=== PATIENT | male | born 1950 | race Hispanic/Latino ===

== ENCOUNTER 2017-07-02 13:03 | Inpatient (IN) | payer MEDICARE ==
[~2017-07-02] VITALS: Ht 167.6 cm; Wt 99.8 kg
[~2017-07-02 13:03] MED LIST: ASPI-555 PO; CETI-101 PO; DEXL60CA3 PO; DUTA.5 PO; FLUT15.88 NS; GARL1CAP7 PO; LINA145C PO; LOSA25TA21 PO; METOPROLOL; PHENAZOPYRID PO; ROSU20TA PO; SIMV20TA6 PO; SUCR1TAB2 PO
[2017-07-02] MEDS ORDERED: SODIUM CHLORIDE 0.9% 1000ML 1,000 ML IV ONE (13:08)
[2017-07-02] MEDS ORDERED: ADENOSINE 3 MG/ML 2ML VIAL IV ONE (13:08)
[2017-07-02 13:22] LABS: BASOPHILS % (AUTO) 0.3 % (0.0-5.0); EOSINOPHILS % (AUTO) 0.2 % (0.0-8.0); HEMATOCRIT 48.8 % (42-54); LYMPHOCYTES % (AUTO) 17.7 % (21.0-51.0); MEAN CORPUSCULAR HEMOGLOBIN 31.6 pg (27.0-33.0); MEAN CORPUSCULAR HGB CONC 34.3 g/dL (32.0-36.0); MEAN CORPUSCULAR VOLUME 92.1 fL (79-99); NEUTROPHILS % (AUTO) 79.8 % (40.0-77.0); PLATELET COUNT (AUTO) 219 K/uL (130-400); RED CELL DISTRIBUTION WIDTH 13.7 % (11.0-15.5); WHITE BLOOD COUNT (AUTO) 8.2 K/uL (4.8-10.8)
[2017-07-02 13:31] LABS: CREATININE 1.3 mg/dL (0.5-1.5)
[2017-07-02 13:36] LABS: ALBUMIN 4.5 g/dL (3.5-5.0); BILIRUBIN,TOTAL 0.7 mg/dL (0.2-1.0); TOTAL PROTEIN, SERUM 8.3 g/dL (6.0-8.3)
[2017-07-02] MEDS ORDERED: NITROGLYCERIN 0.4 MG SL TAB SL ONE (13:37)
[2017-07-02 14:20] LABS: CREATINE KINASE, TOTAL 154 U/L (21-232); MYOGLOBIN 89 ng/mL (10-92); THYROID STIMULATING HORMONE 3.05 uIU/mL (0.36-3.74); TROPONIN I < 0.04 ng/mL (0.00-0.06)
[2017-07-02 14:34] LABS: T4 (THYROXINE) 7.1 mcg/dL (4.7-13.3)
[2017-07-02] MEDS ORDERED: ASPIRIN 325 MG TABLET ONE (14:40)
[2017-07-02] MEDS ORDERED: NITROGLYCERIN 1GM/1 INCH PACKET TD ONE (14:40)
[2017-07-02] MEDS ORDERED: GUAIFENESIN-DM 200/20 MG 10 ML PO PRN (15:00)
[2017-07-02] MEDS ORDERED: LACTULOSE 20 GM/30 ML UDCUP PO PRN (15:00)
[2017-07-02] MEDS ORDERED: MAG HYDROX/AL HYDROX/SIMETH ES 30 ML SUSP UDCUP PO PRN (15:00)
[2017-07-02] MEDS ORDERED: ONDANSETRON HCL 4 MG/2 ML VIAL IV PRN (15:00)
[2017-07-02] MEDS: INSULIN HUMULIN R 100 UNIT/ML 3ML SQ SCH ×2 (16:30→20:47)
[2017-07-02] MEDS ORDERED: ACETAMINOPHEN 325 MG TAB ONE (17:01)
[2017-07-02 17:29] LABS: HEMOGLOBIN A1C 5.7 % (4.0-6.0)
[2017-07-02 18:20] VITALS: BP 150/85
[2017-07-02] MEDS ORDERED: DUTA.5 PO (18:50)
[2017-07-02] MEDS ORDERED: OMEP20CA10 PO (18:50)
[2017-07-02 19:40] VITALS: BP 131/77
[2017-07-02] MEDS: FAMOTIDINE/PF 20 MG/2 ML VIAL IV SCH (20:46)
[2017-07-02] MEDS: METOPROLOL TARTRATE 25 MG TAB PO SCH (20:46)
[2017-07-02 21:23] LABS: TROPONIN I 3.07 ng/mL (0.00-0.06)
[2017-07-02] MEDS ORDERED: ENOXAPARIN SODIUM 100 MG/1 ML SQ SCH ×2 (22:00→23:15)
[2017-07-02] MEDS: ACETAMINOPHEN 325 MG TAB PO PRN (22:13)
[2017-07-02 23:36] VITALS: BP 98/57
[2017-07-03] VITALS (22 sets, daily range): BP systolic 90–148; BP diastolic 49–81
[2017-07-03 06:10] LABS: CREATINE KINASE MB 35.7 ng/mL (0.5-3.6)
[2017-07-03 06:12] LABS: TROPONIN I 2.97 ng/mL (0.00-0.06)
[2017-07-03] MEDS: INSULIN HUMULIN R 100 UNIT/ML 3ML SQ SCH ×4 (06:26→21:00)
[2017-07-03] MEDS: METOPROLOL TARTRATE 25 MG TAB PO SCH ×2 (08:04→20:38)
[2017-07-03] MEDS: ASPIRIN 325 MG TABLET PO SCH (08:04)
[2017-07-03] MEDS: FAMOTIDINE/PF 20 MG/2 ML VIAL IV SCH ×2 (08:04→20:37)
[2017-07-03] MEDS ORDERED: ENOXAPARIN SODIUM 40 MG/0.4 ML SYRINGE SQ SCH (09:00)
[2017-07-03] MEDS ORDERED: SUCRALFATE 1 GM TABLET PO SCH (10:15)
[2017-07-03] MEDS ORDERED: FLUTICASONE PROPIONATE 50 MCG NS SCH (10:15)
[2017-07-03] MEDS: ACETAMINOPHEN 325 MG TAB PO PRN ×3 (14:35→23:20)
[2017-07-03] MEDS ORDERED: NITROGLYCERIN 0.4 MG SL TAB SL ONE (14:37)
[2017-07-03] MEDS ORDERED: NITROGLYCERIN 0.4 MG SL TAB SL PRN (14:45)
[2017-07-03] MEDS ORDERED: METOPROLOL TARTRATE 1 MG/ML 5ML VIAL IV SCH (15:00)
[2017-07-03] MEDS ORDERED: METOPROLOL TARTRATE 1 MG/ML 5ML VIAL IV ONE (15:01)
[2017-07-03] MEDS ORDERED: NITROGLYCERIN 50 MG/D5% WATER 250 BOT IV PRN (15:15)
[2017-07-03] MEDS ORDERED: NITROGLYCERIN 50 MG/D5% WATER 1 BOT ONE (15:21)
[2017-07-03 15:40] LABS: CREATINE KINASE MB 21.8 ng/mL (0.5-3.6)
[2017-07-03 15:47] LABS: TROPONIN I 2.54 ng/mL (0.00-0.06)
[2017-07-03] MEDS: CLOPIDOGREL BISULFATE 75 MG TAB PO SCH (16:15)
[2017-07-03] MEDS: ATORVASTATIN CALCIUM 10 MG TABLET PO SCH (20:38)
[2017-07-03] MEDS: CETIRIZINE HCL 5 MG TABLET PO SCH (20:38)
[2017-07-04] VITALS (9 sets, daily range): BP systolic 82–136; BP diastolic 37–78
[2017-07-04 03:54] LABS: HEMATOCRIT 39.3 % (42-54); MEAN CORPUSCULAR HEMOGLOBIN 31.6 pg (27.0-33.0); MEAN CORPUSCULAR HGB CONC 34.3 g/dL (32.0-36.0); MEAN CORPUSCULAR VOLUME 92.3 fL (79-99); PLATELET COUNT (AUTO) 187 K/uL (130-400); RED BLOOD CELL COUNT(AUTO) 4.25 MIL/uL (4.50-6.20); RED CELL DISTRIBUTION WIDTH 13.6 % (11.0-15.5); WHITE BLOOD COUNT (AUTO) 6.8 K/uL (4.8-10.8)
[2017-07-04 04:20] LABS: CREATINE KINASE MB 7.8 ng/mL (0.5-3.6); CREATININE 1.2 mg/dL (0.5-1.5); POTASSIUM 3.8 mmol/L (3.5-5.1)
[2017-07-04 04:23] LABS: TROPONIN I 1.85 ng/mL (0.00-0.06)
[2017-07-04] MEDS: INSULIN HUMULIN R 100 UNIT/ML 3ML SQ SCH (06:29)
[2017-07-04] MEDS: ACETAMINOPHEN 325 MG TAB PO PRN ×2 (06:42→20:17)
[2017-07-04] MEDS: CLOPIDOGREL BISULFATE 75 MG TAB PO SCH (08:17)
[2017-07-04] MEDS: LOSARTAN 50 MG TABLET PO SCH (08:17)
[2017-07-04] MEDS: METOPROLOL TARTRATE 25 MG TAB PO SCH ×2 (08:17→21:37)
[2017-07-04] MEDS: ENOXAPARIN SODIUM 100 MG/1 ML SQ SCH (08:17)
[2017-07-04] MEDS: ASPIRIN 325 MG TABLET PO SCH (08:17)
[2017-07-04] MEDS: FAMOTIDINE/PF 20 MG/2 ML VIAL IV SCH ×2 (08:35→21:39)
[2017-07-04] MEDS: LINZESS 145 MCG PO SCH (09:00)
[2017-07-04] MEDS: **HM** DEXILANT 60MG PO SCH (09:14)
[2017-07-04] MEDS: ISOSORBIDE MONONITRATE 20 MG TABLET PO SCH ×2 (13:19→21:38)
[2017-07-04] MEDS: ATORVASTATIN CALCIUM 10 MG TABLET PO SCH (21:37)
[2017-07-04] MEDS: CETIRIZINE HCL 5 MG TABLET PO SCH (21:37)
[2017-07-05] VITALS (7 sets, daily range): BP systolic 104–161; BP diastolic 59–81
[2017-07-05 04:58] LABS: CREATININE 1.2 mg/dL (0.5-1.5); POTASSIUM 3.7 mmol/L (3.5-5.1)
[2017-07-05 10:11] LABS: INR 0.99 (0.85-1.15); PROTHROMBIN TIME 10.4 SEC (9.6-11.6)
[2017-07-05] MEDS ORDERED: REGADENOSON 0.4 MG/5 ML PF SYG IVP SCH (14:30)
[2017-07-05] MEDS: ISOSORBIDE MONONITRATE 20 MG TABLET PO SCH ×2 (16:52→21:20)
[2017-07-05] MEDS: ASPIRIN 325 MG TABLET PO SCH (16:53)
[2017-07-05] MEDS: CLOPIDOGREL BISULFATE 75 MG TAB PO SCH (16:53)
[2017-07-05] MEDS: LOSARTAN 50 MG TABLET PO SCH (16:53)
[2017-07-05] MEDS: METOPROLOL TARTRATE 25 MG TAB PO SCH ×2 (16:53→21:19)
[2017-07-05] MEDS: AVODART 0.5 MG PO SCH (16:54)
[2017-07-05] MEDS: LINZESS 145 MCG PO SCH (16:54)
[2017-07-05] MEDS: **HM** DEXILANT 60MG PO SCH (16:54)
[2017-07-05] MEDS: ENOXAPARIN SODIUM 100 MG/1 ML SQ SCH (16:55)
[2017-07-05] MEDS: FAMOTIDINE/PF 20 MG/2 ML VIAL IV SCH ×2 (16:55→21:20)
[2017-07-05] MEDS: ACETAMINOPHEN 325 MG TAB PO PRN (18:56)
[2017-07-05] MEDS: ATORVASTATIN CALCIUM 10 MG TABLET PO SCH (21:19)
[2017-07-05] MEDS: CETIRIZINE HCL 5 MG TABLET PO SCH (21:20)
[2017-07-05] MEDS ORDERED: SODIUM CHLORIDE 0.9% 500ML 500 ML IV SCH (22:14)
[2017-07-06] VITALS (14 sets, daily range): BP systolic 88–149; BP diastolic 53–90
[2017-07-06] MEDS: ACETAMINOPHEN 325 MG TAB PO PRN (00:38)
[2017-07-06 04:06] LABS: HEMATOCRIT 41.8 % (42-54); MEAN CORPUSCULAR HEMOGLOBIN 31.7 pg (27.0-33.0); MEAN CORPUSCULAR HGB CONC 34.5 g/dL (32.0-36.0); PLATELET COUNT (AUTO) 200 K/uL (130-400); RED BLOOD CELL COUNT(AUTO) 4.54 MIL/uL (4.50-6.20); RED CELL DISTRIBUTION WIDTH 13.4 % (11.0-15.5); WHITE BLOOD COUNT (AUTO) 5.7 K/uL (4.8-10.8)
[2017-07-06 04:16] LABS: CREATININE 1.2 mg/dL (0.5-1.5)
[2017-07-06] MEDS: METOPROLOL TARTRATE 25 MG TAB PO SCH ×2 (07:44→21:09)
[2017-07-06] MEDS: LOSARTAN 50 MG TABLET PO SCH (07:44)
[2017-07-06] MEDS: ISOSORBIDE MONONITRATE 20 MG TABLET PO SCH ×2 (07:45→21:09)
[2017-07-06] MEDS: ASPIRIN 325 MG TABLET PO SCH (07:45)
[2017-07-06] MEDS: FAMOTIDINE/PF 20 MG/2 ML VIAL IV SCH ×2 (07:45→21:09)
[2017-07-06] MEDS: **HM** DEXILANT 60MG PO SCH (07:54)
[2017-07-06] MEDS: LINZESS 145 MCG PO SCH (07:54)
[2017-07-06] MEDS ORDERED: NITROGLYCERIN 5 MG/ML 10 ML VIAL IV ONE (12:11)
[2017-07-06] MEDS ORDERED: LIDOCAINE HCL 2% 20ML ONE (12:11)
[2017-07-06] MEDS ORDERED: HEPARIN SODIUM 1000UNIT/ML 10ML VIAL ONE (12:11)
[2017-07-06] MEDS ORDERED: BIVALIRUDIN 250 MG/VIAL IV ONE (12:11)
[2017-07-06] MEDS ORDERED: ISOVUE-370 50ML VIAL IV ONE (12:11)
[2017-07-06] MEDS ORDERED: IOPAMIDOL-370 100 ML VIAL IV ONE (12:11)
[2017-07-06] MEDS ORDERED: MIDAZOLAM HCL 1 MG/ML 2ML VIAL ONE (12:55)
[2017-07-06] MEDS ORDERED: FENTANYL CITRATE PF 50 MCG/1 ML 2ML VIAL ONE (12:55)
[2017-07-06] MEDS ORDERED: SODIUM CHLORIDE 0.9% 1000ML 1,000 ML IV SCH (13:46)
[2017-07-06] MEDS: ACETAMINOPHEN-CODEINE 300/30MG TAB PO PRN ×2 (17:06→21:11)
[2017-07-06] MEDS: CLOPIDOGREL BISULFATE 75 MG TAB PO SCH (17:07)
[2017-07-06] MEDS: CETIRIZINE HCL 5 MG TABLET PO SCH (21:09)
[2017-07-06] MEDS: ATORVASTATIN CALCIUM 10 MG TABLET PO SCH (21:09)
[2017-07-07 03:38] VITALS: BP 113/57
[2017-07-07 05:00] LABS: HEMATOCRIT 40.6 % (42-54); MEAN CORPUSCULAR HEMOGLOBIN 31.8 pg (27.0-33.0); MEAN CORPUSCULAR HGB CONC 34.5 g/dL (32.0-36.0); MEAN CORPUSCULAR VOLUME 92.3 fL (79-99); NUCLEATED RED BLOOD CELLS 0.1 % (0.0-0.19); PLATELET COUNT (AUTO) 198 K/uL (130-400); RED CELL DISTRIBUTION WIDTH 13.5 % (11.0-15.5); WHITE BLOOD COUNT (AUTO) 4.8 K/uL (4.8-10.8)
[2017-07-07 05:36] LABS: CREATININE 1.1 mg/dL (0.5-1.5); POTASSIUM 3.6 mmol/L (3.5-5.1)
[2017-07-07] MEDS: ACETAMINOPHEN 325 MG TAB PO PRN (06:34)
[2017-07-07 07:28] VITALS: BP 120/75
[2017-07-07] MEDS: AVODART 0.5 MG PO SCH (09:00)
[2017-07-07] MEDS: LINZESS 145 MCG PO SCH (09:00)
[2017-07-07] MEDS: **HM** DEXILANT 60MG PO SCH (09:00)
[2017-07-07] MEDS: ASPIRIN 325 MG TABLET PO SCH (09:53)
[2017-07-07] MEDS: FAMOTIDINE/PF 20 MG/2 ML VIAL IV SCH (09:53)
[2017-07-07] MEDS: CLOPIDOGREL BISULFATE 75 MG TAB PO SCH (09:54)
[2017-07-07] MEDS: LOSARTAN 50 MG TABLET PO SCH (09:54)
[2017-07-07] MEDS: METOPROLOL TARTRATE 25 MG TAB PO SCH (09:54)
[2017-07-07] MEDS: ISOSORBIDE MONONITRATE 20 MG TABLET PO SCH (09:55)
[2017-07-07 11:29] VITALS: BP 121/69
== END 2017-07-07 16:45 | disposition home or self-care (01) | DRG 281 ==
LOC: EDH 13:03 → OBSVTOIN 14:54 → EDHIP 14:54 → 2DH 17:53 → 2CH 07-03 15:27 → 2DH 07-04 13:33
PROVIDERS: ADMIT Family Medicine; ATTEND Family Medicine
PROC: 4A023N7 Measurement of Cardiac Sampling and Pressure, Left Heart, Percutaneous Approach (ICD-10-PCS; principal; 2017-07-06)
PROC: B2131ZZ Fluoroscopy of Multiple Coronary Artery Bypass Grafts using Low Osmolar Contrast (ICD-10-PCS; 2017-07-06)
PROC: B2111ZZ Fluoroscopy of Multiple Coronary Arteries using Low Osmolar Contrast (ICD-10-PCS; 2017-07-06)
PROC: B2151ZZ Fluoroscopy of Left Heart using Low Osmolar Contrast (ICD-10-PCS; 2017-07-06)
PROC: B2181ZZ Fluoroscopy of Left Internal Mammary Bypass Graft using Low Osmolar Contrast (ICD-10-PCS; 2017-07-06)
PROC: B3101ZZ Fluoroscopy of Thoracic Aorta using Low Osmolar Contrast (ICD-10-PCS; 2017-07-06)
DX: I21.4 Non-ST elevation (NSTEMI) myocardial infarction (principal); I47.1 Supraventricular tachycardia; I50.22 Chronic systolic (congestive) heart failure; I11.0 Hypertensive heart disease with heart failure; Z95.1 Presence of aortocoronary bypass graft; I25.110 Atherosclerotic heart disease of native coronary artery with unstable angina pectoris; E78.5 Hyperlipidemia, unspecified; Z88.0 Allergy status to penicillin; Z82.49 Family history of ischemic heart disease and other diseases of the circulatory system; Z79.82 Long term (current) use of aspirin; Z87.891 Personal history of nicotine dependence; Z28.21 Immunization not carried out because of patient refusal
CPT/HCPCS: 36415; 71045; 78452; 80048; 80053; 80061; 82550; 82553; 82948; 83036; 83874; 83880; 84436; 84443; 84484; 85025; 85027; 85610; 93005; 93017; 93306; 93459; 96374; 99152; 99153; 99291; A9500; C1760; C1769; C1894; J0153; J0583; J1644; J1650; J2250; J2785; J3010; J3490; J7030; Q9967

== ENCOUNTER 2017-12-02 19:04 | Emergency (ER) | payer MEDICARE ==
[~2017-12-02 19:04] MED LIST changes: -GARL1CAP7 PO; -METOPROLOL; +OMEP20CA10 PO; -PHENAZOPYRID PO; -ROSU20TA PO
[2017-12-02] MEDS ORDERED: ONDANSETRON ODT 4 MG TAB ONE (19:26)
[2017-12-02] MEDS ORDERED: HYDROCODONE/ACETAMINOPHEN 10/325 MG TAB ONE (19:26)
[2017-12-02] MEDS ORDERED: CLONIDINE HCL 0.1 MG TABLET ONE (20:18)
[2017-12-02] MEDS ORDERED: MORPHINE SULFATE 8 MG/ML VIAL ONE (20:28)
== END 2017-12-02 20:54 | disposition home or self-care (01) ==
LOC: EDH 19:04
DX: M19.072 Primary osteoarthritis, left ankle and foot (principal); I25.810 Atherosclerosis of coronary artery bypass graft(s) without angina pectoris; E78.5 Hyperlipidemia, unspecified; I10 Essential (primary) hypertension; Z88.8 Allergy status to other drugs, medicaments and biological substances; Z88.0 Allergy status to penicillin
CPT/HCPCS: 73600; 96372; 99284; J2270

== ENCOUNTER 2018-06-03 17:18 | Emergency (ER) | payer MEDICARE ==
[~2018-06-03 17:18] MED LIST changes: +LOSA25TA16 PO; -LOSA25TA21 PO
[2018-06-03] MEDS ORDERED: ACETAMINOPHEN EXTRA STRENGTH 500 MG TABLET ONE (17:37)
[2018-06-03] MEDS ORDERED: DEXAMETHASONE SOD PHOSPHATE 10MG/ML 1ML VIAL ONE (18:12)
[2018-06-03] MEDS ORDERED: KETOROLAC TROMETHAMINE 30MG/ML ONE (18:12)
[2018-06-03] MEDS ORDERED: IPRATROPIUM/ALBUTEROL SULFATE 3 ML SOLUTION IH ONE (18:16)
== END 2018-06-03 18:56 | disposition home or self-care (01) ==
LOC: EDH 17:18
DX: J10.1 Influenza due to other identified influenza virus with other respiratory manifestations (principal); I10 Essential (primary) hypertension; I25.810 Atherosclerosis of coronary artery bypass graft(s) without angina pectoris; E78.5 Hyperlipidemia, unspecified; Z98.890 Other specified postprocedural states; Z87.891 Personal history of nicotine dependence; Z88.0 Allergy status to penicillin; Z88.8 Allergy status to other drugs, medicaments and biological substances
CPT/HCPCS: 71046; 94640; 96372 ×2; 99283; J1100; J1885

== ENCOUNTER 2019-12-22 11:41 | Inpatient (IN) | payer MEDICARE ==
[~2019-12-22] VITALS: Ht 167.6 cm; Wt 86.2 kg
[2019-12-22] MEDS: METHYLPREDNISOLONE SOD SUCC 40MG/ML 1ML IVP SCH (08:30)
[~2019-12-22 11:41] MED LIST changes: -ASPI-555 PO; +ASPI-556 PO; -CETI-101 PO; +CETI-89 PO; +FLUT15.845 NS; -FLUT15.88 NS; -LOSA25TA16 PO; +LOSA25TA41 PO; -OMEP20CA10 PO; +OMEP20CA12 PO; +SIMV-43 PO; -SIMV20TA6 PO
[2019-12-22] MEDS ORDERED: METHYLPREDNISOLONE SOD SUCC 40MG/ML 1ML ONE ×2 (11:55→20:03)
[2019-12-22] MEDS ORDERED: DOXYCYCLINE HYCLATE 100 MG TABLET PO ONE ×2 (11:55→22:55)
[2019-12-22] MEDS ORDERED: ALBUTEROL INHALER 90MCG/INH IH ONE (11:55)
[2019-12-22 12:43] LABS: BASOPHILS % (AUTO) 1.3 % (0.0-5.0); EOSINOPHILS % (AUTO) 0.6 % (0.0-8.0); HEMATOCRIT 42.6 % (42-54); LYMPHOCYTES % (AUTO) 13.8 % (21.0-51.0); MEAN CORPUSCULAR HEMOGLOBIN 30.8 pg (27.0-33.0); MEAN CORPUSCULAR HGB CONC 33.8 g/dL (32.0-36.0); MEAN CORPUSCULAR VOLUME 91.2 fL (79-99); MONOCYTES % (AUTO) 8.6 % (3.0-13.0); NEUTROPHILS % (AUTO) 75.4 % (40.0-77.0); PLATELET COUNT (AUTO) 155 K/uL (130-400); RED BLOOD CELL COUNT(AUTO) 4.67 MIL/uL (4.50-6.20); RED CELL DISTRIBUTION WIDTH 13.3 % (11.0-15.5); WHITE BLOOD COUNT (AUTO) 6.4 K/uL (4.8-10.8)
[2019-12-22 12:56] LABS: ABG BASE EXCESS -0.7 mmol/L (-2.0-3.0); ABG HCO3 22.8 mmol/L (21.0-28.0); ABG OXYGEN SATURATION 96.7 % (95.0-99.0); ABG PCO2 35 mmHg (35-48)
[2019-12-22 12:57] LABS: CARBON DIOXIDE 24 mmol/L (21-32); CHLORIDE 99 mmol/L (101-111); CREATININE 1.1 mg/dL (0.5-1.5); GLOMERULAR FILTR. RATE CALC 71 mL/min (>60); GLUCOSE,RANDOM 110 mg/dL (70-105); POTASSIUM 3.7 mmol/L (3.5-5.1); SODIUM SERUM 136 mmol/L (136-145); UREA NITROGEN, BLOOD 16 mg/dL (7-18)
[2019-12-22 13:07] LABS: INR 0.89 (0.85-1.15); PROTHROMBIN TIME 9.7 SEC (9.6-11.6)
[2019-12-22 13:08] LABS: ALANINE AMINOTRANSFERASE 22 U/L (12-78); ALBUMIN 3.5 g/dL (3.5-5.0); ASPARTATE AMINOTRANSFERASE 32 U/L (10-37); BILIRUBIN,TOTAL 0.5 mg/dL (0.2-1.0); CREATINE KINASE, TOTAL 205 U/L (21-232); MYOGLOBIN 158 ng/mL (10-92); TOTAL PROTEIN, SERUM 7.8 g/dL (6.0-8.3); TROPONIN I < 0.04 ng/mL (0.00-0.06)
[2019-12-22] MEDS ORDERED: BENZONATATE 100 MG CAPSULE PO ONE ×2 (15:19→20:04)
[2019-12-22 16:00] LABS: APPEARANCE,URINE Clear (CLEAR); BILIRUBIN,URINE Negative (NEGATIVE); COLOR,URINE Yellow (YELLOW); GLUCOSE, URINE (UA) Negative (NEGATIVE); KETONES,URINE Trace mg/dL (NEGATIVE); LEUKOCYTE ESTERASE ,URINE Negative (NEGATIVE); NITRATE,URINE Negative (NEGATIVE); OCCULT BLOOD,URINE Negative (NEGATIVE); PROTEIN,URINE POS 1+ mg/dL (NEGATIVE); UROBILINOGEN,URINE 0.2 mg/dL (0.2-1.0)
[2019-12-22] MEDS ORDERED: ERGOCALCIFEROL (VITAMIN D2) 50,000 UNIT CAPSULE PO ONE (16:15)
[2019-12-22] MEDS ORDERED: HYDRALAZINE HCL 20 MG/ML VIAL IV PRN (16:15)
[2019-12-22] MEDS ORDERED: ACETAMINOPHEN 325 MG TAB PO PRN (16:15)
[2019-12-22 16:19] LABS: BACTERIA,URINE Few /HPF (None Seen); MUCUS,URINE Few LPF (None Seen); RBC,URINE 0-1 /HPF (0-1); SQUAMOUS EPITHELIAL CELL,UR 0-2 /HPF (0-2)
[2019-12-22] MEDS: AZITHROMYCIN 500MG+NS 250ML 250 ML IV SCH (17:00)
[2019-12-22] MEDS ORDERED: ERGOCALCIFEROL (VITAMIN D2) 50,000 UNIT CAPSULE ONE (17:03)
[2019-12-22] MEDS ORDERED: AZITHROMYCIN 500MG+NS 250ML 250 ML IV ONE (17:03)
[2019-12-22] MEDS: DOXYCYCLINE HYCLATE 100 MG TABLET PO SCH (17:15)
[2019-12-22] MEDS ORDERED: IOHEXOL 350 MG/ML 100ML INFUS..BTL IV ONE (17:16)
[2019-12-22] MEDS ORDERED: IOHEXOL-350 50ML VIAL IV ONE (17:36)
[2019-12-22] MEDS ORDERED: IOHEXOL-350 75 ML VIAL IV ONE (17:40)
[2019-12-22] MEDS ORDERED: CETIRIZINE HCL 5 MG TABLET PO ONE (20:03)
[2019-12-22] MEDS ORDERED: SUCRALFATE 1 GM TABLET ONE (20:04)
[2019-12-22] MEDS ORDERED: NON-FORMULARY MEDICATION 1 EACH (Cetirizine HCl (Zyrtec) 10 MG) PO SCH (21:00)
[2019-12-22 23:10] LABS: HEMOGLOBIN A1C 6.5 % (4.0-6.0)
[2019-12-23] MEDS ORDERED: ACETAMINOPHEN 325 MG TAB ONE ×2 (04:15→22:57)
[2019-12-23] MEDS ORDERED: METHYLPREDNISOLONE SOD SUCC 40MG/ML 1ML ONE ×4 (04:16→22:55)
--- NOTE | 2019-12-23 07:30 | NUR ---
ASSUMED CARE OF PATIENT RECEIVED REPORT FROM Merly LEWIS RN. PT STABLE, AAO X 3, FOLLOWS COMMANDS, NOTED TO GET SOB ON EXERTION WHILE TALKING AND MOVING AROUND IN THE BED. BBS DIMINISHED TO ALL LOBES. O2 @ 15L VIA NON-REBREATHER MASK, O2 SATS 95 %, WITH TACHYPNEA NOTED, INCREASED O2 TO 15 LITERS, PT C/O GBW, NUMBNESS AT TIMES TO THE RIGHT LOWER EXTREMITY, MD AWARE. DENIES ANY PAIN. CALL SCHULER PLACED IN REACH. SIDE RAILS UP X 2. BED IN LOWEST POSITION.
[2019-12-23 08:00] VITALS: BP 146/75
[2019-12-23] MEDS: METHYLPREDNISOLONE SOD SUCC 40MG/ML 1ML IVP SCH ×2 (08:30→13:30)
[2019-12-23] MEDS: BENZONATATE 100 MG CAPSULE PO SCH ×2 (08:30→13:30)
[2019-12-23] MEDS: SUCRALFATE 1 GM TABLET PO SCH ×3 (08:30→16:30)
[2019-12-23] MEDS: ASCORBIC ACID 500 MG TAB PO SCH (09:00)
[2019-12-23] MEDS: ASPIRIN 81 MG EC TAB PO SCH (09:00)
[2019-12-23] MEDS ORDERED: ENOXAPARIN SODIUM 40 MG/0.4 ML SYRINGE SQ SCH (09:00)
[2019-12-23] MEDS: LOSARTAN 50 MG TABLET PO SCH (09:00)
[2019-12-23] MEDS ORDERED: NON-FORMULARY MEDICATION 1 EACH (Losartan Potassium 25 MG) PO SCH (09:00)
[2019-12-23] MEDS: Linaclotide (Linzess) 145 MCG PO SCH (09:00)
[2019-12-23] MEDS ORDERED: ASPIRIN 81MG TAB.CHEW ONE (09:11)
[2019-12-23] MEDS ORDERED: ASCORBIC ACID 500 MG TAB ONE (09:11)
[2019-12-23] MEDS ORDERED: BENZONATATE 100 MG CAPSULE PO ONE ×3 (09:12→22:57)
[2019-12-23] MEDS ORDERED: ENOXAPARIN SODIUM 40 MG/0.4 ML SYRINGE SQ ONE (09:12)
[2019-12-23] MEDS ORDERED: LOSARTAN 50 MG TABLET ONE (09:12)
[2019-12-23] MEDS ORDERED: SUCRALFATE 1 GM TABLET ONE ×3 (09:12→22:57)
[2019-12-23 10:53] LABS: BASOPHILS % (AUTO) 0.5 % (0.0-5.0); HEMATOCRIT 43.5 % (42-54); MEAN CORPUSCULAR VOLUME 91.2 fL (79-99); MONOCYTES % (AUTO) 4.2 % (3.0-13.0); PLATELET COUNT (AUTO) 178 K/uL (130-400); RED BLOOD CELL COUNT(AUTO) 4.77 MIL/uL (4.50-6.20); RED CELL DISTRIBUTION WIDTH 13.5 % (11.0-15.5); WHITE BLOOD COUNT (AUTO) 6.4 K/uL (4.8-10.8)
[2019-12-23 11:13] LABS: ALANINE AMINOTRANSFERASE 20 U/L (12-78); ASPARTATE AMINOTRANSFERASE 45 U/L (10-37); BILIRUBIN,TOTAL 0.6 mg/dL (0.2-1.0); CARBON DIOXIDE 24 mmol/L (21-32); CHLORIDE 103 mmol/L (101-111); CREATININE 0.8 mg/dL (0.5-1.5); GLOMERULAR FILTR. RATE CALC 102 mL/min (>60); GLUCOSE,RANDOM 176 mg/dL (70-105); POTASSIUM 4.3 mmol/L (3.5-5.1); SODIUM SERUM 135 mmol/L (136-145); TOTAL PROTEIN, SERUM 7.4 g/dL (6.0-8.3); UREA NITROGEN, BLOOD 18 mg/dL (7-18)
[2019-12-23 12:00] VITALS: BP 129/70
[2019-12-23] MEDS: ALBUTEROL INHALER 90MCG/INH IH SCH ×2 (12:00→18:00)
[2019-12-23] MEDS ORDERED: INSULIN HUMULIN R 100 UNIT/ML 3ML ONE (15:10)
[2019-12-23 16:00] VITALS: BP 155/75
[2019-12-23] MEDS ORDERED: FUROSEMIDE 10 MG/ML 2ML VIAL IV SCH (16:00)
[2019-12-23] MEDS: AZITHROMYCIN 500MG+NS 250ML 250 ML IV SCH (17:00)
[2019-12-23] MEDS ORDERED: FUROSEMIDE 10 MG/ML 2ML VIAL ONE (17:00)
[2019-12-23] MEDS ORDERED: DOXYCYCLINE HYCLATE 100 MG TABLET PO ONE ×2 (17:00→22:56)
[2019-12-23] MEDS ORDERED: AZITHROMYCIN 500MG+NS 250ML 250 ML IV ONE (17:01)
[2019-12-23] MEDS: GUAIFENESIN-DM 200/20 MG 10 ML PO PRN (17:30)
[2019-12-23] MEDS: DOXYCYCLINE HYCLATE 100 MG TABLET PO SCH (17:30)
[2019-12-23] MEDS ORDERED: GUAIFENESIN-DM 200/20 MG 10 ML ONE ×2 (17:32→22:55)
[2019-12-23] MEDS ORDERED: PHARMACY COMMUNICATION MISC SCH (17:45)
--- NOTE | 2019-12-23 19:06 | NUR ---
SW NOTE SW attempted to contact patient and daughter to complete IA but was unsuccessful. SW will attempt at a later time.
[2019-12-23] MEDS ORDERED: REMDESIVIR (EUA) 520 100 MG VIAL IV ONE (21:00)
[2019-12-23] MEDS ORDERED: REMDESIVIR (EUA) 520 200 MG in SODIUM CHLORIDE 0.9% 250 ML IV ONE (21:00)
[2019-12-23] MEDS ORDERED: SIMVASTATIN 10 MG TABLET ONE (22:56)
[2019-12-23] MEDS ORDERED: CETIRIZINE HCL 5 MG TABLET PO ONE (22:56)
[2019-12-24] MEDS ORDERED: TEMAZEPAM 30 MG CAP PO ONE (04:00)
[2019-12-24] MEDS ORDERED: FUROSEMIDE 10 MG/ML 2ML VIAL ONE ×2 (04:53→18:59)
[2019-12-24 06:43] LABS: BASOPHILS % (AUTO) 0.5 % (0.0-5.0); EOSINOPHILS % (AUTO) 0.5 % (0.0-8.0); HEMATOCRIT 43.8 % (42-54); LYMPHOCYTES % (AUTO) 5.2 % (21.0-51.0); MEAN CORPUSCULAR HEMOGLOBIN 31.1 pg (27.0-33.0); MEAN CORPUSCULAR HGB CONC 34.2 g/dL (32.0-36.0); MEAN CORPUSCULAR VOLUME 90.7 fL (79-99); MONOCYTES % (AUTO) 3.7 % (3.0-13.0); NEUTROPHILS % (AUTO) 89.8 % (40.0-77.0); PLATELET COUNT (AUTO) 204 K/uL (130-400); RED BLOOD CELL COUNT(AUTO) 4.83 MIL/uL (4.50-6.20); RED CELL DISTRIBUTION WIDTH 13.3 % (11.0-15.5)
[2019-12-24 07:11] LABS: ALANINE AMINOTRANSFERASE 22 U/L (12-78); ALBUMIN 3.2 g/dL (3.5-5.0); ASPARTATE AMINOTRANSFERASE 29 U/L (10-37); BILIRUBIN,TOTAL 0.5 mg/dL (0.2-1.0); CARBON DIOXIDE 27 mmol/L (21-32); CHLORIDE 100 mmol/L (101-111); CREATININE 1.2 mg/dL (0.5-1.5); GLOMERULAR FILTR. RATE CALC 64 mL/min (>60); GLUCOSE,RANDOM 201 mg/dL (70-105); POTASSIUM 3.6 mmol/L (3.5-5.1); SODIUM SERUM 136 mmol/L (136-145); TOTAL PROTEIN, SERUM 7.6 g/dL (6.0-8.3); UREA NITROGEN, BLOOD 21 mg/dL (7-18)
[2019-12-24] MEDS ORDERED: METHYLPREDNISOLONE SOD SUCC 40MG/ML 1ML ONE ×2 (09:03→21:03)
[2019-12-24] MEDS ORDERED: BENZONATATE 100 MG CAPSULE PO ONE ×2 (09:04→21:04)
[2019-12-24] MEDS ORDERED: ENOXAPARIN SODIUM 40 MG/0.4 ML SYRINGE SQ ONE (09:05)
[2019-12-24] MEDS ORDERED: ASCORBIC ACID 500 MG TAB ONE (09:07)
[2019-12-24] MEDS ORDERED: ASPIRIN 81MG TAB.CHEW ONE ×2 (09:07→09:27)
[2019-12-24] MEDS ORDERED: SUCRALFATE 1 GM TABLET ONE ×3 (09:08→21:05)
[2019-12-24] MEDS ORDERED: INSULIN HUMULIN R 100 UNIT/ML 3ML ONE (09:09)
[2019-12-24] MEDS ORDERED: LOSARTAN 50 MG TABLET ONE (09:09)
[2019-12-24] MEDS ORDERED: DOXYCYCLINE HYCLATE 100 MG TABLET PO ONE ×2 (11:31→21:03)
[2019-12-24] MEDS ORDERED: ACETAMINOPHEN 325 MG TAB ONE ×2 (16:43→21:04)
--- NOTE | 2019-12-24 18:55 | NUR ---
cm note call made to listed next of kin daughter óscar iqbal [phone] and to [phone]. no answer. will continue to f/u.
[2019-12-24] MEDS: REMDESIVIR (EUA) 520 100 MG in SODIUM CHLORIDE 0.9% 250 ML IV SCH (20:00)
[2019-12-24] MEDS: CETIRIZINE HCL 5 MG TABLET PO SCH (21:00)
[2019-12-24] MEDS ORDERED: REMDESIVIR (EUA) 520 100 MG VIAL IV ONE (21:00)
[2019-12-24] MEDS: SIMVASTATIN 20 MG TABLET PO SCH (21:00)
[2019-12-24] MEDS ORDERED: ENOXAPARIN SODIUM 60 MG/0.6 ML SQ ONE (21:02)
[2019-12-24] MEDS ORDERED: GUAIFENESIN-DM 200/20 MG 10 ML ONE (21:02)
[2019-12-24] MEDS ORDERED: SIMVASTATIN 10 MG TABLET ONE (21:03)
[2019-12-24] MEDS ORDERED: CETIRIZINE HCL 5 MG TABLET PO ONE (21:03)
[2019-12-24] MEDS ORDERED: METOPROLOL TARTRATE 25 MG TAB ONE (21:05)
[2019-12-24] MEDS ORDERED: TEMAZEPAM 30 MG CAP ONE (21:05)
[2019-12-25] MEDS ORDERED: NITROGLYCERIN 0.4 MG SL TAB SL ONE (02:13)
[2019-12-25] MEDS ORDERED: GUAIFENESIN-CODEINE 5 ML SYRUP ONE (02:34)
[2019-12-25] MEDS ORDERED: FUROSEMIDE 10 MG/ML 2ML VIAL ONE ×2 (05:13→08:20)
[2019-12-25 07:13] LABS: BASOPHILS % (AUTO) 0.3 % (0.0-5.0); EOSINOPHILS % (AUTO) 0.3 % (0.0-8.0); HEMATOCRIT 42.3 % (42-54); LYMPHOCYTES % (AUTO) 3.2 % (21.0-51.0); MONOCYTES % (AUTO) 3.6 % (3.0-13.0); NEUTROPHILS % (AUTO) 92.3 % (40.0-77.0); PLATELET COUNT (AUTO) 212 K/uL (130-400); RED BLOOD CELL COUNT(AUTO) 4.65 MIL/uL (4.50-6.20); RED CELL DISTRIBUTION WIDTH 13.2 % (11.0-15.5)
[2019-12-25 07:58] LABS: ALANINE AMINOTRANSFERASE 24 U/L (12-78); ASPARTATE AMINOTRANSFERASE 29 U/L (10-37); BILIRUBIN,TOTAL 0.5 mg/dL (0.2-1.0); CARBON DIOXIDE 32 mmol/L (21-32); CHLORIDE 100 mmol/L (101-111); CREATININE 1.2 mg/dL (0.5-1.5); GLOMERULAR FILTR. RATE CALC 64 mL/min (>60); GLUCOSE,RANDOM 183 mg/dL (70-105); POTASSIUM 3.2 mmol/L (3.5-5.1); SODIUM SERUM 137 mmol/L (136-145); TOTAL PROTEIN, SERUM 7.3 g/dL (6.0-8.3); UREA NITROGEN, BLOOD 26 mg/dL (7-18)
[2019-12-25] MEDS ORDERED: ENOXAPARIN SODIUM 60 MG/0.6 ML SQ ONE ×2 (08:19→20:19)
[2019-12-25] MEDS ORDERED: ASPIRIN 81MG TAB.CHEW ONE (08:20)
[2019-12-25] MEDS ORDERED: ASCORBIC ACID 500 MG TAB ONE (08:20)
[2019-12-25] MEDS ORDERED: BENZONATATE 100 MG CAPSULE PO ONE ×3 (08:21→20:20)
[2019-12-25] MEDS ORDERED: LOSARTAN 50 MG TABLET ONE (08:21)
[2019-12-25] MEDS ORDERED: METOPROLOL TARTRATE 25 MG TAB ONE ×2 (08:21→20:20)
[2019-12-25] MEDS ORDERED: SUCRALFATE 1 GM TABLET ONE ×4 (08:21→20:20)
[2019-12-25] MEDS: LOSARTAN 50 MG TABLET PO SCH (09:00)
[2019-12-25] MEDS: ASCORBIC ACID 500 MG TAB PO SCH (09:00)
[2019-12-25] MEDS: Linaclotide (Linzess) 145 MCG PO SCH (09:00)
[2019-12-25] MEDS: ASPIRIN 81 MG EC TAB PO SCH (09:00)
[2019-12-25] MEDS: FUROSEMIDE 10 MG/ML 2ML VIAL IV SCH (09:00)
[2019-12-25] MEDS ORDERED: METHYLPREDNISOLONE SOD SUCC 40MG/ML 1ML ONE ×3 (09:44→20:19)
[2019-12-25] MEDS ORDERED: POTASSIUM CHLORIDE 10% ELIXIR 20 MEQ/15 ML UDCUP PO PRN (10:30)
[2019-12-25] MEDS ORDERED: POTASSIUM CHLORIDE 10MEQ/100ML 100 ML IV PRN (10:30)
[2019-12-25] MEDS ORDERED: LIDOCAINE HCL-MPF 1% 2ML VIAL IV PRN (10:30)
[2019-12-25 11:15] LABS: ABG BASE EXCESS 3.4 mmol/L (-2.0-3.0); ABG HCO3 26.7 mmol/L (21.0-28.0); ABG OXYGEN SATURATION 90.6 % (95.0-99.0); ABG PCO2 37 mmHg (35-48)
--- NOTE | 2019-12-25 13:05 | NUR ---
NO ANSWER AT CONTACTS PROVIDED ON FACE SHEET
[2019-12-25] MEDS ORDERED: DOXYCYCLINE HYCLATE 100 MG TABLET PO ONE (13:26)
[2019-12-25] MEDS ORDERED: AZITHROMYCIN 500MG+NS 250ML 250 ML IV ONE (13:27)
[2019-12-25] MEDS: METHYLPREDNISOLONE SOD SUCC 40MG/ML 1ML IVP SCH ×2 (14:00→21:00)
[2019-12-25] MEDS: AZITHROMYCIN 500MG+NS 250ML 250 ML IV SCH (16:15)
[2019-12-25] MEDS: ALBUTEROL INHALER 90MCG/INH IH SCH ×2 (18:00→23:20)
[2019-12-25] MEDS: REMDESIVIR (EUA) 520 100 MG in SODIUM CHLORIDE 0.9% 250 ML IV SCH (20:00)
[2019-12-25] MEDS ORDERED: CETIRIZINE HCL 5 MG TABLET PO ONE (20:19)
[2019-12-25] MEDS ORDERED: SIMVASTATIN 10 MG TABLET ONE (20:19)
[2019-12-25] MEDS: BENZONATATE 100 MG CAPSULE PO SCH (21:00)
[2019-12-25] MEDS: SUCRALFATE 1 GM TABLET PO SCH (21:00)
[2019-12-25] MEDS: INSULIN HUMULIN R 100 UNIT/ML 3ML SQ SCH (21:00)
[2019-12-25] MEDS: ENOXAPARIN SODIUM 60 MG/0.6 ML SQ SCH (21:00)
[2019-12-25] MEDS: METOPROLOL TARTRATE 25 MG TAB PO SCH (21:00)
[2019-12-25] MEDS: SIMVASTATIN 20 MG TABLET PO SCH (21:00)
[2019-12-25] MEDS ORDERED: REMDESIVIR (EUA) 520 100 MG VIAL IV ONE (21:00)
[2019-12-25] MEDS: CETIRIZINE HCL 5 MG TABLET PO SCH (21:00)
[2019-12-25 22:02] VITALS: BP 150/76
[2019-12-26 00:11] VITALS: BP 125/57
--- NOTE | 2019-12-26 02:06 | NUR ---
ASSESSMENT PATIENT ALERT AND ORIENTED TIMES 4. no complaints of any pain. patient came to the floor on 15 liters nonrebreather. sating 92%. patients daughter just called and said that the patient felt hot and like he couldnt catch his breath. checked his oxygen level and patient was sating 90% on the 15 liters nonrebreather. had patient lay on side and oxygen went to 97%. called md and got an order for anxiety. will give 1mg of morphine
[2019-12-26] MEDS ORDERED: MORPHINE SULFATE 2 MG/ML 1ML SYG IVP ONE (02:15)
[2019-12-26] MEDS ORDERED: MORPHINE SULFATE 2 MG/ML 1ML SYG ONE (02:34)
[2019-12-26 03:49] VITALS: BP 123/71
[2019-12-26 05:20] LABS: BASOPHILS % (AUTO) 0.1 % (0.0-5.0); HEMATOCRIT 40.4 % (42-54); LYMPHOCYTES % (AUTO) 3.7 % (21.0-51.0); MEAN CORPUSCULAR HEMOGLOBIN 30.9 pg (27.0-33.0); MEAN CORPUSCULAR HGB CONC 34.2 g/dL (32.0-36.0); MEAN CORPUSCULAR VOLUME 90.6 fL (79-99); MONOCYTES % (AUTO) 4.5 % (3.0-13.0); NEUTROPHILS % (AUTO) 91.3 % (40.0-77.0); PLATELET COUNT (AUTO) 198 K/uL (130-400); RED BLOOD CELL COUNT(AUTO) 4.46 MIL/uL (4.50-6.20); WHITE BLOOD COUNT (AUTO) 8.9 K/uL (4.8-10.8)
[2019-12-26] MEDS: ALBUTEROL INHALER 90MCG/INH IH SCH ×2 (05:31→19:58)
[2019-12-26] MEDS: INSULIN HUMULIN R 100 UNIT/ML 3ML SQ SCH ×4 (05:32→21:00)
[2019-12-26 05:36] LABS: CREATININE 1.1 mg/dL (0.5-1.5); POTASSIUM 3.7 mmol/L (3.5-5.1)
[2019-12-26] MEDS: LOSARTAN 50 MG TABLET PO SCH (08:53)
[2019-12-26] MEDS: SUCRALFATE 1 GM TABLET PO SCH ×4 (08:53→20:44)
[2019-12-26] MEDS: BENZONATATE 100 MG CAPSULE PO SCH ×3 (08:53→20:44)
[2019-12-26] MEDS: METOPROLOL TARTRATE 25 MG TAB PO SCH ×2 (08:54→20:51)
[2019-12-26] MEDS: ASCORBIC ACID 500 MG TAB PO SCH (08:54)
[2019-12-26] MEDS: METHYLPREDNISOLONE SOD SUCC 40MG/ML 1ML IVP SCH ×3 (08:54→20:44)
[2019-12-26] MEDS: ASPIRIN 81 MG EC TAB PO SCH (08:54)
[2019-12-26] MEDS: ENOXAPARIN SODIUM 60 MG/0.6 ML SQ SCH (08:55)
[2019-12-26] MEDS: FUROSEMIDE 10 MG/ML 2ML VIAL IV SCH (08:55)
[2019-12-26] MEDS: Linaclotide (Linzess) 145 MCG PO SCH (08:55)
[2019-12-26 09:30] VITALS: BP 127/79
[2019-12-26 11:53] VITALS: BP 125/46
--- NOTE | 2019-12-26 13:19 | NUR ---
CM NOTE/IA UNABLE TO MEET WITH PATIENT IN ROOM D/T RESTRICTION FOR COVID POSITIVE. PER NURSE, CORRECT PHONE NUMBER FOR DAUGHTER IS [phone], CHRIS PELLETIER. CALLED DAUGHTER, PER DAUGHTER, PATIENT LIVES WITH HER AND SON [place], INDEPENDENT WITH ADLS, USES CANE, DRIVES TO APPOINTMENTS, AND FEELS SAFE FOR PATIENT TO RETURN HOME. SECOND NEXT OF KIN ADDED: YANELIS HOYT . FACESHEET FAXED TO REGISTRATION FOR UPDATE. Addendum: 12/26/19 at 1334 by THADDEUS ROB RN CM Amended: Links added.
[2019-12-26] MEDS ORDERED: COMPOUND IV REFRIGERATED 1 EACH IVSOLN MISC PRN (14:00)
[2019-12-26 16:44] VITALS: BP 130/70
[2019-12-26] MEDS: AZITHROMYCIN 500MG+NS 250ML 250 ML IV SCH (17:09)
--- NOTE | 2019-12-26 17:50 | NUR ---
plasma cpp unit started at this time, instructed patient to call for any change in condition increased sob, back pain, rash, itching, etc. Verbalized understanding. Refer to transfusion sheet for details.
[2019-12-26 20:00] VITALS: BP 134/52
[2019-12-26] MEDS ORDERED: REMDESIVIR (EUA) 520 100 MG VIAL IV ONE (20:00)
[2019-12-26] MEDS: REMDESIVIR (EUA) 520 100 MG in SODIUM CHLORIDE 0.9% 250 ML IV SCH (20:38)
[2019-12-26] MEDS ORDERED: SODIUM CHLORIDE 0.9% 250 ML IV ONE (20:43)
[2019-12-26] MEDS: SIMVASTATIN 20 MG TABLET PO SCH (20:45)
[2019-12-26] MEDS: CETIRIZINE HCL 5 MG TABLET PO SCH (20:45)
[2019-12-26] MEDS: ACETAMINOPHEN 325 MG TAB PO PRN (23:18)
[2019-12-26] MEDS: GUAIFENESIN-DM 200/20 MG 10 ML PO PRN (23:25)
[2019-12-27] VITALS: BP 110/50
[2019-12-27] MEDS: ALBUTEROL INHALER 90MCG/INH IH SCH ×5 (00:54→23:46)
[2019-12-27] MEDS: GUAIFENESIN-DM 200/20 MG 10 ML PO PRN (03:45)
[2019-12-27 04:00] VITALS: BP 112/53
[2019-12-27] MEDS: INSULIN HUMULIN R 100 UNIT/ML 3ML SQ SCH ×4 (06:16→21:11)
[2019-12-27] MEDS: SUCRALFATE 1 GM TABLET PO SCH ×4 (06:17→21:10)
[2019-12-27] MEDS: Linaclotide (Linzess) 145 MCG PO SCH (07:40)
[2019-12-27 08:00] VITALS: BP 160/87
[2019-12-27] MEDS: METHYLPREDNISOLONE SOD SUCC 40MG/ML 1ML IVP SCH ×3 (08:14→21:09)
[2019-12-27] MEDS: BENZONATATE 100 MG CAPSULE PO SCH ×3 (08:15→21:10)
[2019-12-27] MEDS: METOPROLOL TARTRATE 25 MG TAB PO SCH ×2 (08:15→21:10)
[2019-12-27] MEDS: FUROSEMIDE 10 MG/ML 2ML VIAL IV SCH (08:15)
[2019-12-27] MEDS: ASCORBIC ACID 500 MG TAB PO SCH (08:16)
[2019-12-27] MEDS: ASPIRIN 81 MG EC TAB PO SCH (08:16)
[2019-12-27] MEDS: LOSARTAN 50 MG TABLET PO SCH (08:16)
[2019-12-27] MEDS: ENOXAPARIN SODIUM 60 MG/0.6 ML SQ SCH (08:18)
[2019-12-27] MEDS: POTASSIUM CHLORIDE 20 MEQ ERTAB PO PRN ×2 (08:24→12:19)
--- NOTE | 2019-12-27 08:30 | NUR ---
AM ASSESSMENT PT AWAKE, ALERT, AND ORIENTED, ANXIOUS AT TIMES. STATES CANT BREATH, O2 SAT 92-94%. RELAXATION TECHNIQUES GIVEN, POSITIVE REDIRECTION GIVEN, PT MORE CALM. PT ENCOURAGED TO PRONE, REFUSES. O2 PER NON-REBREATHER MASK.
[2019-12-27 11:00] VITALS: BP 112/50
[2019-12-27] MEDS: ACETAMINOPHEN 325 MG TAB PO PRN (12:31)
[2019-12-27] MEDS: LACTULOSE 20 GM/30 ML UDCUP PO SCH ×2 (13:41→21:12)
[2019-12-27 16:00] VITALS: BP 124/75
[2019-12-27] MEDS: AZITHROMYCIN 500MG+NS 250ML 250 ML IV SCH (16:19)
[2019-12-27 20:00] VITALS: BP 141/75
[2019-12-27] MEDS ORDERED: REMDESIVIR (EUA) 520 100 MG VIAL IV ONE (20:00)
[2019-12-27] MEDS: REMDESIVIR (EUA) 520 100 MG in SODIUM CHLORIDE 0.9% 250 ML IV SCH (21:09)
[2019-12-27] MEDS: CETIRIZINE HCL 5 MG TABLET PO SCH (21:10)
[2019-12-27] MEDS: SIMVASTATIN 20 MG TABLET PO SCH (21:10)
[2019-12-27] MEDS: ACETAMINOPHEN-CODEINE 300/30MG TAB PO PRN (21:14)
[2019-12-27] MEDS: HYDROXYZINE HCL 25 MG TABLET PO PRN (23:48)
[2019-12-28] VITALS: BP 105/44
[2019-12-28 04:00] VITALS: BP 146/65
[2019-12-28] MEDS: ALBUTEROL INHALER 90MCG/INH IH SCH ×3 (06:19→17:45)
[2019-12-28] MEDS: INSULIN HUMULIN R 100 UNIT/ML 3ML SQ SCH ×4 (06:19→20:21)
[2019-12-28 06:46] LABS: BASOPHILS % (AUTO) 0.1 % (0.0-5.0); HEMATOCRIT 43.7 % (42-54); LYMPHOCYTES % (AUTO) 1.9 % (21.0-51.0); MEAN CORPUSCULAR HGB CONC 33.9 g/dL (32.0-36.0); MEAN CORPUSCULAR VOLUME 91.6 fL (79-99); MONOCYTES % (AUTO) 3.2 % (3.0-13.0); NEUTROPHILS % (AUTO) 94.3 % (40.0-77.0); PLATELET COUNT (AUTO) 253 K/uL (130-400); RED BLOOD CELL COUNT(AUTO) 4.77 MIL/uL (4.50-6.20); RED CELL DISTRIBUTION WIDTH 12.6 % (11.0-15.5); WHITE BLOOD COUNT (AUTO) 12.7 K/uL (4.8-10.8)
[2019-12-28 07:41] LABS: ALANINE AMINOTRANSFERASE 39 U/L (12-78); ALBUMIN 2.7 g/dL (3.5-5.0); ASPARTATE AMINOTRANSFERASE 29 U/L (10-37); BILIRUBIN,TOTAL 0.6 mg/dL (0.2-1.0); CARBON DIOXIDE 28 mmol/L (21-32); CHLORIDE 103 mmol/L (101-111); GLOMERULAR FILTR. RATE CALC 79 mL/min (>60); GLUCOSE,RANDOM 153 mg/dL (70-105); LACTATE DEHYDROGENASE 376 U/L (81-234); POTASSIUM 3.5 mmol/L (3.5-5.1); SODIUM SERUM 140 mmol/L (136-145); TOTAL PROTEIN, SERUM 6.8 g/dL (6.0-8.3); UREA NITROGEN, BLOOD 34 mg/dL (7-18)
[2019-12-28] MEDS: Linaclotide (Linzess) 145 MCG PO SCH (07:48)
[2019-12-28 08:00] VITALS: BP 128/80
[2019-12-28] MEDS ORDERED: PHARMACY COMMUNICATION MISC SCH (08:00)
[2019-12-28] MEDS: SUCRALFATE 1 GM TABLET PO SCH ×4 (08:28→20:07)
[2019-12-28] MEDS: ASCORBIC ACID 500 MG TAB PO SCH (08:28)
[2019-12-28] MEDS: FUROSEMIDE 10 MG/ML 2ML VIAL IV SCH (08:28)
[2019-12-28] MEDS: ENOXAPARIN SODIUM 60 MG/0.6 ML SQ SCH (08:28)
[2019-12-28] MEDS: METHYLPREDNISOLONE SOD SUCC 40MG/ML 1ML IVP SCH ×3 (08:28→20:07)
[2019-12-28] MEDS: POTASSIUM CHLORIDE 20 MEQ ERTAB PO PRN (08:29)
[2019-12-28] MEDS: LOSARTAN 50 MG TABLET PO SCH (08:29)
[2019-12-28] MEDS: ASPIRIN 81 MG EC TAB PO SCH (08:29)
[2019-12-28] MEDS: BENZONATATE 100 MG CAPSULE PO SCH ×3 (08:30→20:08)
[2019-12-28] MEDS: HYDROXYZINE HCL 25 MG TABLET PO PRN (08:30)
[2019-12-28] MEDS: METOPROLOL TARTRATE 25 MG TAB PO SCH ×2 (08:30→20:08)
--- NOTE | 2019-12-28 08:30 | NUR ---
AM ASSESSMENT PT AWAKE, ALERT, AND ORIENTED. EPISODES OF ANXIETY AT TIMES, POSITIVE REDIRECTION GIVEN. PT STATES HAVING EPISODES OF SOB AT TIMES, O2 PER NON-REBREATHER, O2 SAT 91-93%, PT ENCOURAGED TO PRONE, REFUSES. PO INTAKE ENCOURAGED. CALL LIGHT WITHIN REACH
[2019-12-28 12:00] VITALS: BP 116/50
[2019-12-28] MEDS: DIAZEPAM 5 MG TABLET PO PRN ×2 (12:13→18:41)
--- NOTE | 2019-12-28 14:30 | NUR ---
MORE CALM PT AWAKE AND ALERT, PT MORE CALM AT THIS TIME. O2 PER NON-REBREATHER MASK, O2 SAT 92%. CALL LIGHT WITHIN REACH.
[2019-12-28 16:00] VITALS: BP 119/76
[2019-12-28] MEDS: GUAIFENESIN-DM 200/20 MG 10 ML PO PRN ×2 (17:45→20:55)
[2019-12-28] MEDS: SIMVASTATIN 20 MG TABLET PO SCH (20:08)
[2019-12-28] MEDS: CETIRIZINE HCL 5 MG TABLET PO SCH (20:08)
[2019-12-28 21:00] VITALS: BP 163/80
[2019-12-28] MEDS: ONDANSETRON HCL 4 MG/2 ML VIAL IV PRN (23:11)
--- NOTE | 2019-12-28 23:22 | NUR ---
assessment Pt is alert and oriented times 4 no complaints of any pain. the pt. told me that the Tessalon pearls were not helping with his cough. So I got him some Robitussin and gave it to him around 8 pm. at 2310 patient complains of his stomach is bothering him. He said it is because of the robitussin. I gave him some zofran to see if it will help him. I will continue monitor.
[2019-12-29 00:19] VITALS: BP 142/68
--- NOTE | 2019-12-29 01:48 | NUR ---
more o2 patient was requiring more oxygen than the 15 liters on the nonrebreather. I called respiratory and he put the patient on high flow in addition to the nonrebreather. the respiratory therapist was still having difficulties getting the oxygen saturation above 85% respiratory is going to get a bipap at this time.
--- NOTE | 2019-12-29 02:39 | NUR ---
bipap called jesus swain and got an order for bipap and an abg scheduled for 8 am. patient sating 93% on bipap
[2019-12-29] MEDS: ALBUTEROL INHALER 90MCG/INH IH SCH ×5 (06:00→23:11)
[2019-12-29] MEDS: INSULIN HUMULIN R 100 UNIT/ML 3ML SQ SCH ×4 (06:01→19:59)
[2019-12-29 06:53] LABS: BASOPHILS % (AUTO) 0.1 % (0.0-5.0); HEMATOCRIT 44.2 % (42-54); LYMPHOCYTES % (AUTO) 2.6 % (21.0-51.0); MEAN CORPUSCULAR HEMOGLOBIN 30.3 pg (27.0-33.0); MEAN CORPUSCULAR VOLUME 91.7 fL (79-99); MONOCYTES % (AUTO) 2.3 % (3.0-13.0); NEUTROPHILS % (AUTO) 94.4 % (40.0-77.0); PLATELET COUNT (AUTO) 246 K/uL (130-400); RED BLOOD CELL COUNT(AUTO) 4.82 MIL/uL (4.50-6.20); RED CELL DISTRIBUTION WIDTH 12.9 % (11.0-15.5); WHITE BLOOD COUNT (AUTO) 14.2 K/uL (4.8-10.8)
[2019-12-29 07:25] LABS: ALBUMIN 2.5 g/dL (3.5-5.0); BILIRUBIN,TOTAL 0.7 mg/dL (0.2-1.0); CREATININE 1.1 mg/dL (0.5-1.5); CRP QUANTITATIVE 115.8 mg/L (0.00-9.0); POTASSIUM 4.1 mmol/L (3.5-5.1); TOTAL PROTEIN, SERUM 6.8 g/dL (6.0-8.3)
[2019-12-29 07:58] LABS: ABG BASE EXCESS 1.7 mmol/L (-2.0-3.0); ABG HCO3 25.5 mmol/L (21.0-28.0); ABG OXYGEN SATURATION 90.4 % (95.0-99.0); ABG PCO2 37 mmHg (35-48)
[2019-12-29 08:00] VITALS: BP 120/73
[2019-12-29] MEDS: SUCRALFATE 1 GM TABLET PO SCH ×4 (08:47→19:56)
[2019-12-29] MEDS: FUROSEMIDE 10 MG/ML 2ML VIAL IV SCH (08:47)
[2019-12-29] MEDS: METHYLPREDNISOLONE SOD SUCC 40MG/ML 1ML IVP SCH ×3 (08:47→19:56)
[2019-12-29] MEDS: BENZONATATE 100 MG CAPSULE PO SCH ×3 (08:47→19:56)
[2019-12-29] MEDS: Linaclotide (Linzess) 145 MCG PO SCH (08:48)
[2019-12-29] MEDS: ASCORBIC ACID 500 MG TAB PO SCH (08:48)
[2019-12-29] MEDS: METOPROLOL TARTRATE 25 MG TAB PO SCH ×2 (08:48→19:56)
[2019-12-29] MEDS: LOSARTAN 50 MG TABLET PO SCH (08:48)
[2019-12-29] MEDS: ASPIRIN 81 MG EC TAB PO SCH (08:48)
[2019-12-29] MEDS: ENOXAPARIN SODIUM 60 MG/0.6 ML SQ SCH (08:48)
[2019-12-29 12:00] VITALS: BP 119/54
[2019-12-29] MEDS: ACETYLCYSTEINE 600 MG CAPSULE PO SCH ×2 (12:28→19:56)
[2019-12-29] MEDS: DIAZEPAM 5 MG TABLET PO PRN ×2 (12:29→23:11)
[2019-12-29] MEDS ORDERED: PANTOPRAZOLE SODIUM 40 MG TABLET.DR ONE (12:34)
[2019-12-29] MEDS ORDERED: SIMETHICONE 80 MG TAB.CHEW ONE (12:34)
--- NOTE | 2019-12-29 13:53 | NUR ---
RDSCREEN - LOS X 7 Pt with COVID-19 infection. S/p Plasma Tx, Remdesivir. Pt tolerating Heart Healthy diet order with no report of GI distress, Fair PO intake. WBC 14.2, BUN 41, BG 136, Alb 2.5, LDH 373. Obesity class I. Bipap in place. Recommend continue Heart Healthy diet order Recommend 60mL ProMod QD RD to continue to monitor. Please notify as additional nutrition concerns arise. Thank you.
[2019-12-29 16:00] VITALS: BP 100/61
--- NOTE | 2019-12-29 16:00 | NUR ---
NOTE PATIENT AAOX3. DENIES PAIN BUT SEEMS VERY SOB. RESPIRATORY RATE 45. O2 SATS 88-92% ON BIPAP 100%FIO2. HE WAS SWITCHED TO BIPAP OVERNIGHT DUE TO INCREASED SOB. PATIENT ALSO HAD ABG'S THIS AM AND PO2 IN THE 50'S. WILL CONTINUE WITH BIPAP AND SEE WHAT EXCHANGE TROUBLE SHOOTER RECOMMENDS LATER WHEN HE ROUNDS. Addendum: 12/29/19 at 1637 by ANTON HEAD RN NOTE INTENDED FOR 1000 TODAY.
--- NOTE | 2019-12-29 16:26 | NUR ---
NOTE NOTIFIED COOLING TOWER TECHNICIAN CHRISTIAN ABOUT ORDER FOR TRANSFER TO ICU PER DR PAPPAS RECOMMENDATIONS BUT ORDER WRITTEN PER PRIMARY MD DR POLANCO. CURRENTLY BIPAP SAME SETTINGS FIO2 100% SATS 88-92%. FINALLY AGREED TO RECEIVE VALIUM PRN FOR HER HAD REFUSED IT IN AM AND HIS RESPIRATORY RATE IS IN THE LOW 30'S. WAS BREATHING AVERAGE OF 42-45 TIMES PER MINUTE THIS AM. WAS ALSO STARTED ON PPI DAILY AND SIMETHICONE PRN.
[2019-12-29] MEDS ORDERED: SIMETHICONE 80 MG TAB.CHEW PO PRN (19:45)
[2019-12-29] MEDS ORDERED: PHARMACY COMMUNICATION***REMDESIVIR ORDER MISC SCH (19:45)
[2019-12-29] MEDS: SIMVASTATIN 20 MG TABLET PO SCH (19:56)
[2019-12-29] MEDS: CETIRIZINE HCL 5 MG TABLET PO SCH (19:56)
[2019-12-29] MEDS ORDERED: REMDESIVIR (EUA) 520 200 MG in SODIUM CHLORIDE 0.9% 250 ML IV SCH (20:00)
[2019-12-29 20:05] VITALS: BP 96/68
[2019-12-30] VITALS (10 sets, daily range): BP systolic 94–127; BP diastolic 49–72
[2019-12-30 03:35] LABS: ABG BASE EXCESS 1.6 mmol/L (-2.0-3.0); ABG HCO3 25.4 mmol/L (21.0-28.0); ABG PCO2 38 mmHg (35-48)
[2019-12-30 05:13] LABS: BASOPHILS % (AUTO) 0.1 % (0.0-5.0); HEMATOCRIT 41.3 % (42-54); LYMPHOCYTES % (AUTO) 2.2 % (21.0-51.0); MEAN CORPUSCULAR HEMOGLOBIN 30.9 pg (27.0-33.0); MEAN CORPUSCULAR HGB CONC 33.4 g/dL (32.0-36.0); MEAN CORPUSCULAR VOLUME 92.6 fL (79-99); MONOCYTES % (AUTO) 1.3 % (3.0-13.0); NEUTROPHILS % (AUTO) 95.9 % (40.0-77.0); PLATELET COUNT (AUTO) 206 K/uL (130-400); RED BLOOD CELL COUNT(AUTO) 4.46 MIL/uL (4.50-6.20); RED CELL DISTRIBUTION WIDTH 13.1 % (11.0-15.5); WHITE BLOOD COUNT (AUTO) 11.6 K/uL (4.8-10.8)
[2019-12-30] MEDS: ALBUTEROL INHALER 90MCG/INH IH SCH ×4 (05:26→23:07)
[2019-12-30] MEDS: INSULIN HUMULIN R 100 UNIT/ML 3ML SQ SCH ×4 (05:40→20:00)
[2019-12-30] MEDS: SUCRALFATE 1 GM TABLET PO SCH ×4 (05:40→19:58)
--- NOTE | 2019-12-30 06:16 | NUR ---
assessment Pt. is alert and oriented times 4 although has a lot of anxiety at times. no complaints of any pain. patient is on cpap sating inthe mid to low 90's. pt. got his anti viral last night and 1 unit of plasma. morning blood sugar was 160 no coverage needed. vitals are stable will continue to monitor.
[2019-12-30 07:10] LABS: ALBUMIN 2.4 g/dL (3.5-5.0); BILIRUBIN,TOTAL 0.4 mg/dL (0.2-1.0); CREATININE 1.2 mg/dL (0.5-1.5); CRP QUANTITATIVE 168.8 mg/L (0.00-9.0); POTASSIUM 3.9 mmol/L (3.5-5.1); TOTAL PROTEIN, SERUM 6.6 g/dL (6.0-8.3)
[2019-12-30] MEDS: Linaclotide (Linzess) 145 MCG PO SCH (09:00)
[2019-12-30] MEDS: ASCORBIC ACID 500 MG TAB PO SCH (10:03)
[2019-12-30] MEDS: DIAZEPAM 5 MG TABLET PO PRN ×2 (10:04→17:30)
[2019-12-30] MEDS: BENZONATATE 100 MG CAPSULE PO SCH ×3 (10:04→19:58)
[2019-12-30] MEDS: LOSARTAN 50 MG TABLET PO SCH (10:04)
[2019-12-30] MEDS: ASPIRIN 81 MG EC TAB PO SCH (10:05)
[2019-12-30] MEDS: PANTOPRAZOLE SODIUM 40 MG TABLET.DR PO SCH (10:06)
[2019-12-30] MEDS: METHYLPREDNISOLONE SOD SUCC 40MG/ML 1ML IVP SCH ×3 (10:06→19:57)
[2019-12-30] MEDS: ACETYLCYSTEINE 600 MG CAPSULE PO SCH ×2 (10:07→19:58)
[2019-12-30] MEDS: ENOXAPARIN SODIUM 60 MG/0.6 ML SQ SCH (10:10)
[2019-12-30] MEDS: METOPROLOL TARTRATE 25 MG TAB PO SCH ×2 (10:11→19:58)
[2019-12-30] MEDS ORDERED: FUROSEMIDE 10 MG/ML 2ML VIAL IV STA (15:42)
[2019-12-30] MEDS: REMDESIVIR (EUA) 520 100 MG in SODIUM CHLORIDE 0.9% 250 ML IV SCH (19:57)
[2019-12-30] MEDS: SIMVASTATIN 20 MG TABLET PO SCH (19:58)
[2019-12-30] MEDS: CETIRIZINE HCL 5 MG TABLET PO SCH (19:59)
[2019-12-30] MEDS: ENOXAPARIN SODIUM 100 MG/1 ML SQ SCH (21:45)
[2019-12-31] MEDS: DIAZEPAM 5 MG TABLET PO PRN (02:32)
[2019-12-31] MEDS: SUCRALFATE 1 GM TABLET PO SCH ×4 (05:49→20:51)
[2019-12-31] MEDS: ALBUTEROL INHALER 90MCG/INH IH SCH ×4 (05:49→23:26)
[2019-12-31] MEDS: INSULIN HUMULIN R 100 UNIT/ML 3ML SQ SCH ×4 (05:50→20:56)
--- NOTE | 2019-12-31 06:12 | NUR ---
assessment patient is alert and oriented times 4. no complaints of any pain. patent is sating 95 % on cpap. morning blood sugar was 151 no coverage needed rain water iscoming inthe room ceiling. Pt is to be moved to the 2nd floor. vitals are stable will continue to monitor.
[2019-12-31] MEDS: Linaclotide (Linzess) 145 MCG PO SCH (09:00)
[2019-12-31] MEDS: LOSARTAN 50 MG TABLET PO SCH (10:04)
[2019-12-31] MEDS: BENZONATATE 100 MG CAPSULE PO SCH ×4 (10:04→20:55)
[2019-12-31] MEDS: METOPROLOL TARTRATE 25 MG TAB PO SCH ×2 (10:04→20:51)
[2019-12-31] MEDS: PANTOPRAZOLE SODIUM 40 MG TABLET.DR PO SCH (10:04)
[2019-12-31] MEDS: ASPIRIN 81 MG EC TAB PO SCH (10:04)
[2019-12-31] MEDS: ASCORBIC ACID 500 MG TAB PO SCH (10:04)
[2019-12-31] MEDS: ACETYLCYSTEINE 600 MG CAPSULE PO SCH ×2 (10:05→20:50)
[2019-12-31] MEDS: ENOXAPARIN SODIUM 100 MG/1 ML SQ SCH ×2 (10:05→20:52)
[2019-12-31] MEDS: METHYLPREDNISOLONE SOD SUCC 40MG/ML 1ML IVP SCH ×3 (10:05→20:54)
[2019-12-31] MEDS: BISACODYL 10 MG SUPP.RECT RC PRN (15:36)
--- NOTE | 2019-12-31 15:59 | NUR ---
Pt c/o constipation. Called RICHARD Issa order Dulcolax suppository. Administered medication and informed pt to call when ready to use bed perdomo.
[2019-12-31] MEDS: ONDANSETRON HCL 4 MG/2 ML VIAL IV PRN (18:02)
[2019-12-31 19:40] VITALS: BP 128/68
[2019-12-31] MEDS: REMDESIVIR (EUA) 520 100 MG in SODIUM CHLORIDE 0.9% 250 ML IV SCH (20:50)
[2019-12-31] MEDS: CETIRIZINE HCL 5 MG TABLET PO SCH (20:50)
[2019-12-31] MEDS: SIMVASTATIN 20 MG TABLET PO SCH (20:51)
[2019-12-31 23:12] VITALS: BP 112/70
[2019-12-31] MEDS ORDERED: SODIUM CHLORIDE 0.9% 50 ML IV ONE (23:25)
[2020-01-01] VITALS (7 sets, daily range): BP systolic 102–122; BP diastolic 57–76
[2020-01-01 03:44] LABS: ABG BASE EXCESS 2.4 mmol/L (-2.0-3.0); ABG HCO3 26.5 mmol/L (21.0-28.0); ABG OXYGEN SATURATION 95.7 % (95.0-99.0); ABG PCO2 39 mmHg (35-48)
[2020-01-01 04:30] LABS: BASOPHILS % (AUTO) 0.1 % (0.0-5.0); HEMATOCRIT 39.7 % (42-54); LYMPHOCYTES % (AUTO) 1.6 % (21.0-51.0); MEAN CORPUSCULAR HEMOGLOBIN 31.4 pg (27.0-33.0); MEAN CORPUSCULAR HGB CONC 33.8 g/dL (32.0-36.0); MONOCYTES % (AUTO) 1.5 % (3.0-13.0); NEUTROPHILS % (AUTO) 96.5 % (40.0-77.0); PLATELET COUNT (AUTO) 188 K/uL (130-400); RED BLOOD CELL COUNT(AUTO) 4.27 MIL/uL (4.50-6.20); RED CELL DISTRIBUTION WIDTH 12.9 % (11.0-15.5); WHITE BLOOD COUNT (AUTO) 11.3 K/uL (4.8-10.8)
[2020-01-01 04:53] LABS: CREATININE 1.1 mg/dL (0.5-1.5); POTASSIUM 4.2 mmol/L (3.5-5.1)
[2020-01-01] MEDS: ALBUTEROL INHALER 90MCG/INH IH SCH ×3 (06:06→17:23)
[2020-01-01] MEDS: SUCRALFATE 1 GM TABLET PO SCH ×4 (06:31→21:44)
[2020-01-01] MEDS: INSULIN HUMULIN R 100 UNIT/ML 3ML SQ SCH ×4 (06:31→22:57)
[2020-01-01] MEDS: BENZONATATE 100 MG CAPSULE PO SCH ×3 (07:41→21:44)
[2020-01-01] MEDS: METHYLPREDNISOLONE SOD SUCC 40MG/ML 1ML IVP SCH ×3 (07:41→21:43)
[2020-01-01] MEDS: ASPIRIN 81 MG EC TAB PO SCH (07:41)
[2020-01-01] MEDS: ACETYLCYSTEINE 600 MG CAPSULE PO SCH ×2 (07:41→21:45)
[2020-01-01] MEDS: ASCORBIC ACID 500 MG TAB PO SCH (07:41)
[2020-01-01] MEDS: ENOXAPARIN SODIUM 100 MG/1 ML SQ SCH ×2 (07:42→21:44)
[2020-01-01] MEDS: PANTOPRAZOLE SODIUM 40 MG TABLET.DR PO SCH (07:42)
[2020-01-01] MEDS: LOSARTAN 50 MG TABLET PO SCH (07:43)
[2020-01-01] MEDS: METOPROLOL TARTRATE 25 MG TAB PO SCH ×2 (07:43→21:44)
[2020-01-01] MEDS: Linaclotide (Linzess) 145 MCG PO SCH (07:44)
[2020-01-01] MEDS: DIAZEPAM 5 MG TABLET PO PRN (14:00)
[2020-01-01] MEDS: ACETAMINOPHEN-CODEINE 300/30MG TAB PO PRN (17:20)
[2020-01-01] MEDS: SIMVASTATIN 20 MG TABLET PO SCH (21:44)
[2020-01-01] MEDS: CETIRIZINE HCL 5 MG TABLET PO SCH (21:45)
[2020-01-02] MEDS: ALBUTEROL INHALER 90MCG/INH IH SCH ×5 (00:32→23:10)
[2020-01-02 03:36] VITALS: BP 118/68
[2020-01-02 03:41] LABS: ABG BASE EXCESS 1.4 mmol/L (-2.0-3.0); ABG HCO3 25.7 mmol/L (21.0-28.0); ABG OXYGEN SATURATION 92.4 % (95.0-99.0); ABG PCO2 40 mmHg (35-48)
[2020-01-02 03:48] VITALS: BP 103/66
[2020-01-02] MEDS: INSULIN HUMULIN R 100 UNIT/ML 3ML SQ SCH ×4 (05:15→20:20)
[2020-01-02] MEDS: SUCRALFATE 1 GM TABLET PO SCH ×4 (05:15→20:12)
[2020-01-02] MEDS: DIAZEPAM 5 MG TABLET PO PRN ×2 (05:23→23:11)
[2020-01-02 06:36] LABS: BASOPHILS % (AUTO) 0.1 % (0.0-5.0); HEMATOCRIT 42.3 % (42-54); LYMPHOCYTES % (AUTO) 1.9 % (21.0-51.0); MEAN CORPUSCULAR HEMOGLOBIN 30.5 pg (27.0-33.0); MEAN CORPUSCULAR HGB CONC 32.9 g/dL (32.0-36.0); MONOCYTES % (AUTO) 1.3 % (3.0-13.0); NEUTROPHILS % (AUTO) 96.3 % (40.0-77.0); PLATELET COUNT (AUTO) 175 K/uL (130-400); RED BLOOD CELL COUNT(AUTO) 4.55 MIL/uL (4.50-6.20); RED CELL DISTRIBUTION WIDTH 12.8 % (11.0-15.5); WHITE BLOOD COUNT (AUTO) 11.3 K/uL (4.8-10.8)
[2020-01-02 06:45] LABS: ALBUMIN 2.2 g/dL (3.5-5.0); BILIRUBIN,TOTAL 0.6 mg/dL (0.2-1.0); CRP QUANTITATIVE 39.4 mg/L (0.00-9.0); MAGNESIUM 2.6 mg/dL (1.80-2.40); POTASSIUM 4.4 mmol/L (3.5-5.1); TOTAL PROTEIN, SERUM 6.3 g/dL (6.0-8.3)
[2020-01-02] MEDS: Linaclotide (Linzess) 145 MCG PO SCH (07:47)
[2020-01-02 08:36] VITALS: BP 115/69
[2020-01-02] MEDS: BENZONATATE 100 MG CAPSULE PO SCH ×3 (09:01→20:11)
[2020-01-02] MEDS: METOPROLOL TARTRATE 25 MG TAB PO SCH ×2 (09:02→20:12)
[2020-01-02] MEDS: ACETYLCYSTEINE 600 MG CAPSULE PO SCH ×2 (09:02→20:12)
[2020-01-02] MEDS: PANTOPRAZOLE SODIUM 40 MG TABLET.DR PO SCH (09:02)
[2020-01-02] MEDS: ASPIRIN 81 MG EC TAB PO SCH (09:02)
[2020-01-02] MEDS: ENOXAPARIN SODIUM 100 MG/1 ML SQ SCH ×2 (09:02→20:15)
[2020-01-02] MEDS: ASCORBIC ACID 500 MG TAB PO SCH (09:02)
[2020-01-02] MEDS: METHYLPREDNISOLONE SOD SUCC 40MG/ML 1ML IVP SCH ×3 (09:02→20:20)
[2020-01-02] MEDS: LOSARTAN 50 MG TABLET PO SCH (09:03)
--- NOTE | 2020-01-02 11:19 | NUR ---
Informed AJ, PREVENTION RN that family would like a call for an update.
[2020-01-02 12:42] VITALS: BP 112/66
[2020-01-02 14:36] LABS: INR 1.01 (0.85-1.15); PROTHROMBIN TIME 10.9 SEC (9.6-11.6)
--- NOTE | 2020-01-02 15:58 | NUR ---
Pt signed consent for PICC line and it is in the chart, PT/INR completed, will give remdesivir when line is inserted.
[2020-01-02 16:08] VITALS: BP 100/52
[2020-01-02] MEDS: REMDESIVIR (EUA) 520 100 MG in SODIUM CHLORIDE 0.9% 250 ML IV SCH (18:17)
[2020-01-02] MEDS: SIMVASTATIN 20 MG TABLET PO SCH (20:11)
[2020-01-02] MEDS: CETIRIZINE HCL 5 MG TABLET PO SCH (20:11)
[2020-01-02 20:49] VITALS: BP 119/62
--- NOTE | 2020-01-02 21:30 | NUR ---
CHEST PAIN PT C/O RIGHT SIDE MIDSTERNAL CHEST PAIN DESCRIBED PRESSURE, REPRODUCIBLE AND REPORTS WORSE WITH COUGHING. 12 LEAD EKG COMPLETED COIL WRAPPER PHYSICIAN PAGED: DR VANESSA AWAITING CALL BACK. Addendum: 01/03/20 at 0310 by CRISS RILEY RN RN 01/02/2020 2200 RETURN CALL FROM RASHEEDA, NOTIFIED OF ABOVE AND ORDERS RECEIVED FOR NITRO PASTE, CARDIAC LABS Q6 X3 WITH EKG AND ROBITUSSIN WITH CODEINE.
[2020-01-02] MEDS: NITROGLYCERIN 1GM/1 INCH PACKET TD SCH (22:00)
[2020-01-02] MEDS ORDERED: NITROGLYCERIN 1GM/1 INCH PACKET TD ONE (22:08)
[2020-01-02 22:21] LABS: CREATINE KINASE, TOTAL 62 U/L (21-232); MYOGLOBIN 128 ng/mL (10-92); TROPONIN I < 0.04 ng/mL (0.00-0.06)
[2020-01-03] VITALS (7 sets, daily range): BP systolic 99–122; BP diastolic 58–77
[2020-01-03] MEDS: ACETAMINOPHEN-CODEINE 300/30MG TAB PO PRN (01:29)
[2020-01-03] MEDS: GUAIFENESIN-CODEINE 5 ML SYRUP PO PRN ×2 (04:32→11:46)
[2020-01-03 04:41] LABS: BASOPHILS % (AUTO) 0.1 % (0.0-5.0); HEMATOCRIT 39.9 % (42-54); LYMPHOCYTES % (AUTO) 1.3 % (21.0-51.0); MEAN CORPUSCULAR HEMOGLOBIN 30.4 pg (27.0-33.0); MEAN CORPUSCULAR HGB CONC 33.1 g/dL (32.0-36.0); MEAN CORPUSCULAR VOLUME 91.9 fL (79-99); MONOCYTES % (AUTO) 1.1 % (3.0-13.0); NEUTROPHILS % (AUTO) 96.9 % (40.0-77.0); PLATELET COUNT (AUTO) 146 K/uL (130-400); RED BLOOD CELL COUNT(AUTO) 4.34 MIL/uL (4.50-6.20); RED CELL DISTRIBUTION WIDTH 12.7 % (11.0-15.5); WHITE BLOOD COUNT (AUTO) 11.4 K/uL (4.8-10.8)
[2020-01-03 04:52] LABS: CREATININE 0.9 mg/dL (0.5-1.5); CRP QUANTITATIVE 47.3 mg/L (0.00-9.0); POTASSIUM 4.9 mmol/L (3.5-5.1)
[2020-01-03 05:15] LABS: CREATINE KINASE, TOTAL 49 U/L (21-232); MYOGLOBIN 110 ng/mL (10-92); TROPONIN I < 0.04 ng/mL (0.00-0.06)
[2020-01-03] MEDS: ALBUTEROL INHALER 90MCG/INH IH SCH ×4 (06:07→23:27)
[2020-01-03] MEDS: NITROGLYCERIN 1GM/1 INCH PACKET TD SCH (06:08)
[2020-01-03] MEDS: SUCRALFATE 1 GM TABLET PO SCH ×4 (06:08→21:05)
[2020-01-03] MEDS: INSULIN HUMULIN R 100 UNIT/ML 3ML SQ SCH ×4 (06:12→21:00)
[2020-01-03] MEDS: Linaclotide (Linzess) 145 MCG PO SCH (07:43)
[2020-01-03] MEDS: ASCORBIC ACID 500 MG TAB PO SCH (09:24)
[2020-01-03] MEDS: ACETYLCYSTEINE 600 MG CAPSULE PO SCH ×2 (09:24→21:06)
[2020-01-03] MEDS: LOSARTAN 50 MG TABLET PO SCH (09:24)
[2020-01-03] MEDS: ASPIRIN 81 MG EC TAB PO SCH (09:24)
[2020-01-03] MEDS: METHYLPREDNISOLONE SOD SUCC 40MG/ML 1ML IVP SCH ×3 (09:24→21:07)
[2020-01-03] MEDS: PANTOPRAZOLE SODIUM 40 MG TABLET.DR PO SCH (09:24)
[2020-01-03] MEDS: METOPROLOL TARTRATE 25 MG TAB PO SCH ×2 (09:24→21:05)
[2020-01-03] MEDS: BENZONATATE 100 MG CAPSULE PO SCH ×3 (09:24→21:05)
[2020-01-03 10:33] LABS: CREATINE KINASE, TOTAL 46 U/L (21-232); MYOGLOBIN 104 ng/mL (10-92); TROPONIN I < 0.04 ng/mL (0.00-0.06)
[2020-01-03] MEDS: ENOXAPARIN SODIUM 100 MG/1 ML SQ SCH ×2 (11:46→21:07)
[2020-01-03] MEDS: REMDESIVIR (EUA) 520 100 MG in SODIUM CHLORIDE 0.9% 250 ML IV SCH (18:30)
[2020-01-03] MEDS: PHARMACY COMMUNICATION MISC SCH ×2 (18:30→23:27)
[2020-01-03] MEDS: DIAZEPAM 5 MG TABLET PO PRN (21:05)
[2020-01-03] MEDS: SIMVASTATIN 20 MG TABLET PO SCH (21:06)
[2020-01-03] MEDS: CETIRIZINE HCL 5 MG TABLET PO SCH (21:06)
[2020-01-04] MEDS: GUAIFENESIN-CODEINE 5 ML SYRUP PO PRN (02:11)
[2020-01-04 03:44] VITALS: BP 105/61
[2020-01-04 05:29] LABS: ABG BASE EXCESS -0.1 mmol/L (-2.0-3.0); ABG HCO3 23.7 mmol/L (21.0-28.0); ABG OXYGEN SATURATION 71.5 % (95.0-99.0); ABG PCO2 37 mmHg (35-48)
[2020-01-04 05:45] LABS: ABG BASE EXCESS -2.6 mmol/L (-2.0-3.0); ABG OXYGEN SATURATION 90.4 % (95.0-99.0); ABG PCO2 33 mmHg (35-48)
[2020-01-04 06:17] LABS: BASOPHILS % (AUTO) 0.1 % (0.0-5.0); HEMATOCRIT 39.8 % (42-54); LYMPHOCYTES % (AUTO) 2.2 % (21.0-51.0); MEAN CORPUSCULAR HEMOGLOBIN 30.7 pg (27.0-33.0); MEAN CORPUSCULAR HGB CONC 33.7 g/dL (32.0-36.0); MEAN CORPUSCULAR VOLUME 91.1 fL (79-99); MONOCYTES % (AUTO) 1.2 % (3.0-13.0); NEUTROPHILS % (AUTO) 95.9 % (40.0-77.0); PLATELET COUNT (AUTO) 148 K/uL (130-400); RED BLOOD CELL COUNT(AUTO) 4.37 MIL/uL (4.50-6.20); RED CELL DISTRIBUTION WIDTH 12.7 % (11.0-15.5); WHITE BLOOD COUNT (AUTO) 12.5 K/uL (4.8-10.8)
[2020-01-04] MEDS: ALBUTEROL INHALER 90MCG/INH IH SCH ×4 (06:23→23:14)
[2020-01-04] MEDS: SUCRALFATE 1 GM TABLET PO SCH ×4 (06:24→20:01)
[2020-01-04 06:35] LABS: CREATININE 0.9 mg/dL (0.5-1.5); POTASSIUM 4.6 mmol/L (3.5-5.1)
[2020-01-04] MEDS: INSULIN HUMULIN R 100 UNIT/ML 3ML SQ SCH ×4 (07:27→20:05)
[2020-01-04 08:00] VITALS: BP 108/68
[2020-01-04] MEDS: LOSARTAN 50 MG TABLET PO SCH (08:23)
[2020-01-04] MEDS: BENZONATATE 100 MG CAPSULE PO SCH ×3 (08:23→20:19)
[2020-01-04] MEDS: ENOXAPARIN SODIUM 100 MG/1 ML SQ SCH ×2 (08:23→20:03)
[2020-01-04] MEDS: ASPIRIN 81 MG EC TAB PO SCH (08:24)
[2020-01-04] MEDS: ASCORBIC ACID 500 MG TAB PO SCH (08:24)
[2020-01-04] MEDS: PANTOPRAZOLE SODIUM 40 MG TABLET.DR PO SCH (08:24)
[2020-01-04] MEDS: METOPROLOL TARTRATE 25 MG TAB PO SCH ×2 (08:24→20:02)
[2020-01-04] MEDS: ACETYLCYSTEINE 600 MG CAPSULE PO SCH ×2 (08:24→20:01)
[2020-01-04] MEDS: METHYLPREDNISOLONE SOD SUCC 40MG/ML 1ML IVP SCH ×3 (08:24→20:01)
[2020-01-04] MEDS: Linaclotide (Linzess) 145 MCG PO SCH (08:24)
[2020-01-04] MEDS: BISACODYL 10 MG SUPP.RECT RC PRN (08:27)
[2020-01-04] MEDS: PHARMACY COMMUNICATION MISC SCH ×3 (08:27→23:14)
[2020-01-04] MEDS ORDERED: PHARMACY COMMUNICATION MISC SCH (08:30)
[2020-01-04] MEDS: ACETAMINOPHEN 325 MG TAB PO PRN (10:51)
[2020-01-04 11:00] VITALS: BP 107/72
[2020-01-04] MEDS ORDERED: POLYETHYLENE GLYCOL 3350 17 GM POWD.PACK ONE (13:04)
[2020-01-04] MEDS ORDERED: POLYETHYLENE GLYCOL 3350 17 GM POWD.PACK PO SCH (14:45)
[2020-01-04 16:00] VITALS: BP 121/64
[2020-01-04] MEDS: ACETAMINOPHEN-CODEINE 300/30MG TAB PO PRN (17:09)
[2020-01-04] MEDS: SIMVASTATIN 20 MG TABLET PO SCH (20:01)
[2020-01-04] MEDS: CETIRIZINE HCL 5 MG TABLET PO SCH (20:01)
[2020-01-04] MEDS: DIAZEPAM 5 MG TABLET PO PRN (20:02)
[2020-01-04 20:05] VITALS: BP 115/60
[2020-01-04 23:20] VITALS: BP 126/69
[2020-01-05] MEDS: ACETAMINOPHEN 325 MG TAB PO PRN (00:41)
[2020-01-05 03:36] VITALS: BP 111/68
[2020-01-05] MEDS: INSULIN HUMULIN R 100 UNIT/ML 3ML SQ SCH ×4 (05:02→20:38)
[2020-01-05 05:26] LABS: BASOPHILS % (AUTO) 0.1 % (0.0-5.0); HEMATOCRIT 38.8 % (42-54); LYMPHOCYTES % (AUTO) 2.2 % (21.0-51.0); MEAN CORPUSCULAR HEMOGLOBIN 30.6 pg (27.0-33.0); MEAN CORPUSCULAR HGB CONC 33.2 g/dL (32.0-36.0); MEAN CORPUSCULAR VOLUME 91.9 fL (79-99); MONOCYTES % (AUTO) 1.4 % (3.0-13.0); NEUTROPHILS % (AUTO) 95.7 % (40.0-77.0); PLATELET COUNT (AUTO) 132 K/uL (130-400); RED BLOOD CELL COUNT(AUTO) 4.22 MIL/uL (4.50-6.20); RED CELL DISTRIBUTION WIDTH 12.8 % (11.0-15.5); WHITE BLOOD COUNT (AUTO) 11.5 K/uL (4.8-10.8)
[2020-01-05 05:59] LABS: CREATININE 0.9 mg/dL (0.5-1.5); CRP QUANTITATIVE 25.2 mg/L (0.00-9.0); POTASSIUM 4.3 mmol/L (3.5-5.1)
[2020-01-05] MEDS: SUCRALFATE 1 GM TABLET PO SCH ×4 (05:59→20:35)
[2020-01-05] MEDS: ALBUTEROL INHALER 90MCG/INH IH SCH ×3 (05:59→17:59)
[2020-01-05] MEDS: GUAIFENESIN-CODEINE 5 ML SYRUP PO PRN (06:40)
[2020-01-05] MEDS: ASPIRIN 81 MG EC TAB PO SCH (08:28)
[2020-01-05] MEDS: ASCORBIC ACID 500 MG TAB PO SCH (08:28)
[2020-01-05] MEDS: ACETYLCYSTEINE 600 MG CAPSULE PO SCH ×2 (08:28→20:35)
[2020-01-05] MEDS: BENZONATATE 100 MG CAPSULE PO SCH ×3 (08:28→20:35)
[2020-01-05] MEDS: PANTOPRAZOLE SODIUM 40 MG TABLET.DR PO SCH (08:28)
[2020-01-05] MEDS: METOPROLOL TARTRATE 25 MG TAB PO SCH ×2 (08:28→20:35)
[2020-01-05] MEDS: METHYLPREDNISOLONE SOD SUCC 40MG/ML 1ML IVP SCH ×3 (08:28→20:35)
[2020-01-05] MEDS: LOSARTAN 50 MG TABLET PO SCH (08:28)
[2020-01-05] MEDS: POLYETHYLENE GLYCOL 3350 17 GM POWD.PACK PO SCH (08:29)
[2020-01-05] MEDS: ENOXAPARIN SODIUM 100 MG/1 ML SQ SCH ×2 (08:30→20:36)
[2020-01-05] MEDS: Linaclotide (Linzess) 145 MCG PO SCH (08:31)
[2020-01-05] MEDS: PHARMACY COMMUNICATION MISC SCH ×2 (08:31→18:00)
[2020-01-05 08:36] VITALS: BP 131/74
[2020-01-05] MEDS: HYDROXYZINE HCL 25 MG TABLET PO PRN (12:07)
[2020-01-05 12:11] VITALS: BP 109/67
[2020-01-05] MEDS: ACETAMINOPHEN-CODEINE 300/30MG TAB PO PRN ×2 (14:55→22:21)
[2020-01-05 15:48] VITALS: BP 127/69
[2020-01-05 20:19] VITALS: BP 134/72
[2020-01-05] MEDS: SIMVASTATIN 20 MG TABLET PO SCH (20:35)
[2020-01-05] MEDS: CETIRIZINE HCL 5 MG TABLET PO SCH (20:35)
[2020-01-05] MEDS: DIAZEPAM 5 MG TABLET PO PRN (20:36)
[2020-01-05 23:40] VITALS: BP 110/63
[2020-01-06] MEDS: ALBUTEROL INHALER 90MCG/INH IH SCH ×2 (00:07→05:19)
[2020-01-06] MEDS: HYDROXYZINE HCL 25 MG TABLET PO PRN ×2 (00:08→20:42)
--- NOTE | 2020-01-06 00:08 | NUR ---
ANXIETY PT C/O ANXIETY FREQUENTLY TONIGHT ALTHOUGH HE IS RESTING CALMLY IN THE BED. HAS ALREADY RECEIVED VALIUM, ATARAX ADMINISTERED AND PT ENCOURAGED TO UTILIZE ALTERNATIVE MEANS TO COPE WITH ANXIETY SUCH MUSIC AND MEDITATION.
[2020-01-06] MEDS: PHARMACY COMMUNICATION MISC SCH ×4 (02:30→20:43)
[2020-01-06 04:17] VITALS: BP 126/81
[2020-01-06 06:30] LABS: BASOPHILS % (AUTO) 0.1 % (0.0-5.0); HEMATOCRIT 37.1 % (42-54); LYMPHOCYTES % (AUTO) 2.3 % (21.0-51.0); MEAN CORPUSCULAR HEMOGLOBIN 31.1 pg (27.0-33.0); MEAN CORPUSCULAR HGB CONC 34.5 g/dL (32.0-36.0); MEAN CORPUSCULAR VOLUME 90.3 fL (79-99); MONOCYTES % (AUTO) 1.7 % (3.0-13.0); NEUTROPHILS % (AUTO) 94.9 % (40.0-77.0); PLATELET COUNT (AUTO) 134 K/uL (130-400); RED BLOOD CELL COUNT(AUTO) 4.11 MIL/uL (4.50-6.20); RED CELL DISTRIBUTION WIDTH 12.7 % (11.0-15.5); WHITE BLOOD COUNT (AUTO) 10.1 K/uL (4.8-10.8)
[2020-01-06] MEDS: SUCRALFATE 1 GM TABLET PO SCH ×4 (06:39→20:42)
[2020-01-06] MEDS: INSULIN HUMULIN R 100 UNIT/ML 3ML SQ SCH ×4 (06:39→21:38)
[2020-01-06 06:56] LABS: CREATININE 0.9 mg/dL (0.5-1.5); POTASSIUM 4.6 mmol/L (3.5-5.1)
[2020-01-06 08:00] VITALS: BP 119/72
[2020-01-06] MEDS: Linaclotide (Linzess) 145 MCG PO SCH (09:00)
[2020-01-06] MEDS: ENOXAPARIN SODIUM 100 MG/1 ML SQ SCH ×2 (09:39→20:44)
[2020-01-06] MEDS: GUAIFENESIN-CODEINE 5 ML SYRUP PO PRN (09:39)
[2020-01-06] MEDS: POLYETHYLENE GLYCOL 3350 17 GM POWD.PACK PO SCH (09:39)
[2020-01-06] MEDS: METOPROLOL TARTRATE 25 MG TAB PO SCH ×2 (09:39→20:42)
[2020-01-06] MEDS: ACETYLCYSTEINE 600 MG CAPSULE PO SCH (09:39)
[2020-01-06] MEDS: BENZONATATE 100 MG CAPSULE PO SCH ×3 (09:40→20:42)
[2020-01-06] MEDS: PANTOPRAZOLE SODIUM 40 MG TABLET.DR PO SCH (09:40)
[2020-01-06] MEDS: LOSARTAN 50 MG TABLET PO SCH (09:40)
[2020-01-06] MEDS: ASCORBIC ACID 500 MG TAB PO SCH (09:40)
[2020-01-06] MEDS: ASPIRIN 81 MG EC TAB PO SCH (09:40)
[2020-01-06] MEDS: METHYLPREDNISOLONE SOD SUCC 40MG/ML 1ML IVP SCH ×3 (09:41→20:42)
[2020-01-06] MEDS: GUAIFENESIN-CODEINE 5 ML SYRUP PO SCH ×3 (11:15→23:32)
[2020-01-06] MEDS: FUROSEMIDE 10 MG/ML 2ML VIAL IV SCH ×2 (11:15→20:43)
[2020-01-06 11:45] VITALS: BP 118/72
[2020-01-06] MEDS: DIAZEPAM 5 MG TABLET PO PRN (15:25)
[2020-01-06 16:00] VITALS: BP 112/74
[2020-01-06] MEDS: ACETAMINOPHEN-CODEINE 300/30MG TAB PO PRN (18:38)
[2020-01-06 20:09] VITALS: BP 102/65
[2020-01-06] MEDS: CETIRIZINE HCL 5 MG TABLET PO SCH (20:42)
[2020-01-06] MEDS: SIMVASTATIN 20 MG TABLET PO SCH (20:42)
[2020-01-07] VITALS (7 sets, daily range): BP systolic 94–123; BP diastolic 55–79
[2020-01-07] MEDS: ACETAMINOPHEN 325 MG TAB PO PRN (02:41)
[2020-01-07] MEDS: SUCRALFATE 1 GM TABLET PO SCH ×4 (05:47→19:50)
[2020-01-07] MEDS: GUAIFENESIN-CODEINE 5 ML SYRUP PO SCH ×4 (05:47→23:08)
[2020-01-07] MEDS: INSULIN HUMULIN R 100 UNIT/ML 3ML SQ SCH ×4 (05:48→21:00)
[2020-01-07 05:52] LABS: BASOPHILS % (AUTO) 0.2 % (0.0-5.0); HEMATOCRIT 38.6 % (42-54); LYMPHOCYTES % (AUTO) 3.2 % (21.0-51.0); MEAN CORPUSCULAR HEMOGLOBIN 31.2 pg (27.0-33.0); MEAN CORPUSCULAR HGB CONC 34.7 g/dL (32.0-36.0); MEAN CORPUSCULAR VOLUME 89.8 fL (79-99); MONOCYTES % (AUTO) 1.3 % (3.0-13.0); NEUTROPHILS % (AUTO) 93.8 % (40.0-77.0); PLATELET COUNT (AUTO) 149 K/uL (130-400); RED CELL DISTRIBUTION WIDTH 12.6 % (11.0-15.5); WHITE BLOOD COUNT (AUTO) 12.2 K/uL (4.8-10.8)
[2020-01-07 07:07] LABS: ALBUMIN 2.1 g/dL (3.5-5.0); BILIRUBIN,TOTAL 0.5 mg/dL (0.2-1.0); CREATININE 0.9 mg/dL (0.5-1.5); CRP QUANTITATIVE 11.7 mg/L (0.00-9.0); POTASSIUM 4.5 mmol/L (3.5-5.1); TOTAL PROTEIN, SERUM 5.7 g/dL (6.0-8.3)
[2020-01-07] MEDS: Linaclotide (Linzess) 145 MCG PO SCH (09:00)
[2020-01-07] MEDS: METHYLPREDNISOLONE SOD SUCC 40MG/ML 1ML IVP SCH ×3 (09:50→19:49)
[2020-01-07] MEDS: FUROSEMIDE 10 MG/ML 2ML VIAL IV SCH ×2 (09:51→19:49)
[2020-01-07] MEDS: ASCORBIC ACID 500 MG TAB PO SCH (09:52)
[2020-01-07] MEDS: POLYETHYLENE GLYCOL 3350 17 GM POWD.PACK PO SCH (09:52)
[2020-01-07] MEDS: ENOXAPARIN SODIUM 100 MG/1 ML SQ SCH ×2 (09:52→19:50)
[2020-01-07] MEDS: METOPROLOL TARTRATE 25 MG TAB PO SCH ×2 (09:53→19:50)
[2020-01-07] MEDS: ASPIRIN 81 MG EC TAB PO SCH (09:53)
[2020-01-07] MEDS: PANTOPRAZOLE SODIUM 40 MG TABLET.DR PO SCH (09:53)
[2020-01-07] MEDS: LOSARTAN 50 MG TABLET PO SCH (09:53)
[2020-01-07] MEDS: BENZONATATE 100 MG CAPSULE PO SCH ×3 (10:26→19:49)
[2020-01-07] MEDS: DIAZEPAM 5 MG TABLET PO PRN (10:27)
[2020-01-07] MEDS: PHARMACY COMMUNICATION MISC SCH ×3 (10:30→23:48)
--- NOTE | 2020-01-07 11:47 | NUR ---
HIGH FLOW PT SWITCHED FROM BIPAP 80%, SPO2 AROUND 93-94% AT REST; TO HIFLOW NC. WILL START AT 100% FIO2. AND WEAN TOLERATED.
--- NOTE | 2020-01-07 14:03 | NUR ---
SHIFT NOTE PT IS TOLERATING HIFLOW NC AT 50L. SATS REMAIN ABOVE 90%. PT HAS GOOD APPETITE, VOIDING. SPOKE WITH DAUGHTER AND UPDATED ON CURRENT CONDITION. PT WAS BATHED AND BARRIER CREAM APPLIED TO BUTTOCK AREA AND ALLEVYN FOAM DRESSING APPLIED TO COCCYX PREVENTATIVE.
[2020-01-07] MEDS: CETIRIZINE HCL 5 MG TABLET PO SCH (19:48)
[2020-01-07] MEDS: SIMVASTATIN 20 MG TABLET PO SCH (19:50)
[2020-01-08] VITALS (14 sets, daily range): BP systolic 65–119; BP diastolic 38–82
[2020-01-08] MEDS ORDERED: KETOROLAC TROMETHAMINE 30MG/ML ONE (00:21)
[2020-01-08] MEDS ORDERED: KETOROLAC TROMETHAMINE 30MG/ML IV PRN (00:30)
[2020-01-08] MEDS ORDERED: ALBUTEROL INHALER 90MCG/INH IH PRN (03:15)
[2020-01-08] MEDS ORDERED: MORPHINE SULFATE 2 MG/ML 1ML SYG ONE (03:18)
--- NOTE | 2020-01-08 03:30 | NUR ---
CHEST PAIN Pt c/of chest pain pressure scale 10/10. Contacted MD Hospitalist and received orders ( EKG, CHEST XRAY, TROP and LABS) and Respiratory placed patient on Bipap 100% FiO2. RN gave one dose of morphine 2mg to subside pain. Upon reassessment, patient continuous to have chest pressure 8/10 and received a second order of 1 time does morphine 2mg. Patient continuous to be monitored. Patient AOX3, follows commands, call light within reach. Will continue to monitor.
[2020-01-08 03:35] LABS: ALBUMIN 2.1 g/dL (3.5-5.0); BILIRUBIN,TOTAL 0.7 mg/dL (0.2-1.0); CRP QUANTITATIVE 28.6 mg/L (0.00-9.0); POTASSIUM 4.8 mmol/L (3.5-5.1); TOTAL PROTEIN, SERUM 5.5 g/dL (6.0-8.3)
[2020-01-08] MEDS: MORPHINE SULFATE 2 MG/ML 1ML SYG IVP PRN ×5 (03:37→16:07)
[2020-01-08] MEDS: GUAIFENESIN-CODEINE 5 ML SYRUP PO SCH ×4 (04:01→23:15)
[2020-01-08 04:10] LABS: BASOPHILS % (AUTO) 0.2 % (0.0-5.0); EOSINOPHILS % (AUTO) 0.1 % (0.0-8.0); HEMATOCRIT 35.8 % (42-54); LYMPHOCYTES % (AUTO) 0.8 % (21.0-51.0); MEAN CORPUSCULAR HEMOGLOBIN 30.9 pg (27.0-33.0); MEAN CORPUSCULAR HGB CONC 34.4 g/dL (32.0-36.0); MEAN CORPUSCULAR VOLUME 89.9 fL (79-99); MONOCYTES % (AUTO) 1.5 % (3.0-13.0); NEUTROPHILS % (AUTO) 96.1 % (40.0-77.0); NUCLEATED RED BLOOD CELLS 0.1 % (0.0-0.19); PLATELET COUNT (AUTO) 145 K/uL (130-400); RED BLOOD CELL COUNT(AUTO) 3.98 MIL/uL (4.50-6.20); RED CELL DISTRIBUTION WIDTH 12.8 % (11.0-15.5)
[2020-01-08] MEDS ORDERED: MORPHINE SULFATE 2 MG/ML 1ML SYG IVP ONE (04:15)
[2020-01-08] MEDS ORDERED: NITROGLYCERIN 1GM/1 INCH PACKET TD PRN (04:15)
[2020-01-08 04:45] LABS: WHITE BLOOD COUNT (AUTO) 32.1 K/uL (4.8-10.8)
[2020-01-08] MEDS: INSULIN HUMULIN R 100 UNIT/ML 3ML SQ SCH ×4 (06:24→21:00)
[2020-01-08 06:41] LABS: BAND NEUTROPHILS % (MANUAL) 5 % (0-2); LYMPHOCYTES % (MANUAL) 1 % (22-44); MAN.DIFF COMMENT-IMPRESSION MANUAL DIFFERENTIAL; MONOCYTES % (MANUAL) 3 % (2-9); SEGMENTED NEUTROPHILS % 91 % (40-70)
[2020-01-08] MEDS: METOPROLOL TARTRATE 1 MG/ML 5ML VIAL IV SCH ×2 (09:30→15:30)
[2020-01-08] MEDS: Linaclotide (Linzess) 145 MCG PO SCH (09:58)
[2020-01-08] MEDS: ENOXAPARIN SODIUM 100 MG/1 ML SQ SCH ×2 (09:58→21:00)
[2020-01-08] MEDS: POLYETHYLENE GLYCOL 3350 17 GM POWD.PACK PO SCH (09:59)
[2020-01-08] MEDS: ASPIRIN 81 MG EC TAB PO SCH (10:00)
[2020-01-08] MEDS: ASCORBIC ACID 500 MG TAB PO SCH (10:00)
[2020-01-08] MEDS: PANTOPRAZOLE SODIUM 40 MG TABLET.DR PO SCH (10:00)
[2020-01-08] MEDS: SUCRALFATE 1 GM TABLET PO SCH ×4 (10:00→23:00)
[2020-01-08] MEDS: METHYLPREDNISOLONE SOD SUCC 40MG/ML 1ML IVP SCH ×3 (10:06→21:00)
[2020-01-08] MEDS: BENZONATATE 100 MG CAPSULE PO SCH ×3 (10:15→23:00)
[2020-01-08] MEDS: PHARMACY COMMUNICATION MISC SCH ×2 (10:30→18:30)
--- NOTE | 2020-01-08 11:21 | NUR ---
physician update dr. pierce paged regarding bladder scan resulted around 75ml. pt wbc elevated and hr slightly tachycardiac. waiting for call back.
--- NOTE | 2020-01-08 11:28 | NUR ---
physician update [address] Chinchilla, no new orders now, some medication were discontinued this morning. will continue with morphine prn for chest pain. will continue to monitor pt.
[2020-01-08] MEDS ORDERED: MORPHINE SULFATE 2 MG/ML 1ML SYG IVP PRN (11:45)
--- NOTE | 2020-01-08 13:11 | NUR ---
renal ultrasound pt has been npo since last night, will keep npo for ultrasound. spoke to tech, she will be here to do test soon.
[2020-01-08] MEDS ORDERED: SODIUM CHLORIDE 0.9% 1000ML 1,000 ML IV ONE (13:35)
--- NOTE | 2020-01-08 14:53 | NUR ---
hypotension nurse was notified pt was hypotensive 60-70's spb. pt was alert no complaints. dr. pierce was notified and was at bedside quickly. 500cc bolus was ordered over 30min. blood pressure after is still low, no other changes with condition. Dr. pierce texted via cell. awaiting response at this time, will continue to monitor.
[2020-01-08] MEDS ORDERED: SODIUM CHLORIDE 0.9% 1000ML 1,000 ML IV SCH (16:00)
[2020-01-08] MEDS: MIDODRINE HCL 5 MG TABLET PO SCH ×2 (16:15→23:45)
[2020-01-08] MEDS ORDERED: NOREPINEPHRINE 4MG/NS 250ML 250 ML IV ONE (16:39)
[2020-01-08] MEDS ORDERED: NOREPINEPHRINE 4MG/NS 250ML 250 ML IV SCH (17:30)
--- NOTE | 2020-01-08 18:27 | NUR ---
HYPOTENSION DR. VANESSA NOTIFIED PT STILL HYPOTENSIVE AFTER 1ST BOLUS. SECOND BOLUS WAS STARTED AT 1600. ORDER FOR MIDODRINE RECEIVED AND GIVEN TO PT, ALSO NOTIFIED PT HAS HAD LITTLE U/O LESS THEN 50CC. PT CONTINUED TO BE HYPOTENSIVE, BECAME COOL AND CLAMMY, RAPID RESPONSE WAS CALLED. AND ORDERS FOR TRANSFER TO ICU AND LEVOPHED GTT OBTAINED. AWAITING ON BED IN ICU, GTT STARTED PER ICU/TELE CHARGE NURSE, PT ON Q 15MIN AUTO B/P CHECKS AND TITRATING GTT PRN FOR MAP >55. PT IS DROWSY, WILL WAKE TO VERBAL STIM. ABLE TO MOVE EXTREMITIES. REPORT WAS CALLED TO JOSH ACEVEDO IN ICU.
--- NOTE | 2020-01-08 19:17 | NUR ---
Approached patient in room. Patient states he can't breath and complaint of chest pain. Hr-142, oxygen saturation 82 on Bipap, blood pressure 69/46 on Levophed.
--- NOTE | 2020-01-08 19:18 | NUR ---
Patient states he would like to change his code status from "Do not Intubate" to "Full code". He also states he would like to have tube to help breath. Nurse notified .
--- NOTE | 2020-01-08 19:21 | NUR ---
Nurse notified respiratory therapist on patient change in code status and patient's request.
--- NOTE | 2020-01-08 19:38 | NUR ---
machining department supervisor called regarding patient's situation.
--- NOTE | 2020-01-08 19:45 | NUR ---
Patient moved from room 220 to 206 ICU.
--- NOTE | 2020-01-08 19:47 | NUR ---
CONCRETE GRINDER OPERATOR at bedside for intubation. CONCRETE GRINDER OPERATOR discussed with patient the intubation process. Nurse witness discussion along with respiratory therapist
[2020-01-08] MEDS ORDERED: MIDAZOLAM HCL 1 MG/ML 2ML VIAL ONE (20:06)
[2020-01-08] MEDS ORDERED: FENTANYL CITRATE PF 50 MCG/1 ML 5ML AMP IV ONE (20:07)
[2020-01-08] MEDS ORDERED: FENTANYL 2500MCG+NS 250ML 250 ML IV ONE (20:08)
[2020-01-08] MEDS ORDERED: METOPROLOL TARTRATE 1 MG/ML 5ML VIAL IV ONE (20:14)
[2020-01-08] MEDS ORDERED: PHENYLEPHRINE HCL 50 MG in SODIUM CHLORIDE 0.9% 250 ML IV PRN (20:30)
[2020-01-08] MEDS ORDERED: DEXMEDETOMIDINE HCL 400 MCG in SODIUM CHLORIDE 0.9% 100 ML IV STA (20:53)
[2020-01-08] MEDS ORDERED: VANCOMYCIN 1.75 GM in SODIUM CHLORIDE 0.9% 250 ML IV ONE (21:00)
[2020-01-08] MEDS ORDERED: VANCOMYCIN PROTOCOL PER PHARMACY IV PRN (21:00)
[2020-01-08] MEDS: MEROPENEM 1 GM VIAL IVP SCH (21:00)
[2020-01-08] MEDS ORDERED: NOREPINEPHRINE BITARTRATE 8 MG/NS 250ML IV SCH ×2 (21:00)
[2020-01-08] MEDS ORDERED: DEXMEDETOMIDINE HCL 400 MCG in SODIUM CHLORIDE 0.9% 100 ML IV SCH (21:15)
[2020-01-08 21:39] LABS: ABG BASE EXCESS -20.5 mmol/L (-2.0-3.0); ABG HCO3 9.7 mmol/L (21.0-28.0); ABG OXYGEN SATURATION 96.2 % (95.0-99.0); ABG PCO2 39 mmHg (35-48)
[2020-01-08] MEDS ORDERED: NOREPINEPHRINE BITARTRATE 32 MG in SODIUM CHLORIDE 0.9% 250 ML IV SCH (22:00)
[2020-01-08] MEDS ORDERED: SODIUM BICARB 50MEQ 50ML VIAL ONE ×3 (22:10→22:59)
[2020-01-08] MEDS ORDERED: CALCIUM GLUCONATE 1 GM/10 ML VIAL IV ONE (22:10)
[2020-01-08] MEDS ORDERED: SODIUM BICARB 50MEQ 50ML VIAL IV STA (22:52)
[2020-01-08] MEDS ORDERED: SODIUM POLYSTYRENE SULFONATE 15 GM/60 ML ML ONE (22:54)
[2020-01-08] MEDS ORDERED: DEXTROSE 50%-WATER 50 ML DISP.SYRIN IV ONE (22:54)
[2020-01-08] MEDS ORDERED: LACTATED RINGERS 1000ML IV PRN (23:00)
[2020-01-08] MEDS ORDERED: INSULIN HUMULIN R 100 UNIT/ML 3ML IV SCH (23:00)
[2020-01-08] MEDS ORDERED: LACTATED RINGERS 1000ML 1,000 ML IV ONE (23:00)
[2020-01-08] MEDS ORDERED: VASOPRESSIN 20 UNITS in SODIUM CHLORIDE 0.9% 100 ML IV SCH (23:00)
[2020-01-08] MEDS ORDERED: DEXTROSE 50%-WATER 25 GM/50 ML VIAL IV SCH (23:00)
[2020-01-08] MEDS ORDERED: SODIUM BICARB 50MEQ 50ML VIAL IV PRN (23:00)
[2020-01-08] MEDS: CETIRIZINE HCL 5 MG TABLET PO SCH (23:00)
[2020-01-08] MEDS: SIMVASTATIN 20 MG TABLET PO SCH (23:00)
[2020-01-08 23:48] LABS: ABG BASE EXCESS -7.6 mmol/L (-2.0-3.0); ABG HCO3 19.3 mmol/L (21.0-28.0); ABG OXYGEN SATURATION 94.4 % (95.0-99.0); ABG PCO2 46 mmHg (35-48)
[2020-01-09] VITALS (61 sets, daily range): BP systolic 70–187; BP diastolic 45–113
--- NOTE | 2020-01-09 00:02 | NUR ---
BENCHMARK CALL PLACED TO ANSWERING SERVICE
[2020-01-09] MEDS: SODIUM POLYSTYRENE SULFONATE 15 GM/60 ML ML PO SCH ×5 (00:22→16:00)
[2020-01-09] MEDS: CALCIUM CHLORIDE 100 MG/ML 10 ML SYG IVP SCH ×3 (00:22→09:55)
[2020-01-09] MEDS ORDERED: VASOPRESSIN 20 UNITS/ML 1ML VIAL ONE (00:57)
[2020-01-09] MEDS ORDERED: DEXMEDETOMIDINE HCL 200 MCG/2 ML VIAL IV ONE (01:00)
[2020-01-09 02:12] LABS: BASOPHILS % (AUTO) 0.1 % (0.0-5.0); EOSINOPHILS % (AUTO) 0.1 % (0.0-8.0); LYMPHOCYTES % (AUTO) 4.8 % (21.0-51.0); MEAN CORPUSCULAR HEMOGLOBIN 31.4 pg (27.0-33.0); MEAN CORPUSCULAR HGB CONC 33.9 g/dL (32.0-36.0); MEAN CORPUSCULAR VOLUME 92.8 fL (79-99); MONOCYTES % (AUTO) 1.4 % (3.0-13.0); NEUTROPHILS % (AUTO) 91.8 % (40.0-77.0); NUCLEATED RED BLOOD CELLS 0.6 % (0.0-0.19); PLATELET COUNT (AUTO) 84 K/uL (130-400); RED BLOOD CELL COUNT(AUTO) 2.07 MIL/uL (4.50-6.20); RED CELL DISTRIBUTION WIDTH 13.1 % (11.0-15.5); WHITE BLOOD COUNT (AUTO) 17.1 K/uL (4.8-10.8)
[2020-01-09 02:14] LABS: HEMATOCRIT 19.2 % (42-54)
--- NOTE | 2020-01-09 02:20 | NUR ---
Stat CBC called due to suspected bleeding, 2100 dose of Lovenox held. CBC revealed Hgb 6.5, Hct 19.2.. Dr. Rachele Muñoz contacted of results, he states he will put order in to transfuse 2 units.
[2020-01-09 02:29] LABS: BILIRUBIN,TOTAL 0.8 mg/dL (0.2-1.0); CREATININE 4.4 mg/dL (0.5-1.5); CRP QUANTITATIVE 41.7 mg/L (0.00-9.0); POTASSIUM 4.4 mmol/L (3.5-5.1); TOTAL PROTEIN, SERUM 3.1 g/dL (6.0-8.3)
[2020-01-09] MEDS ORDERED: DIPHENHYDRAMINE HCL 25 MG CAPSULE PO SCH (02:30)
[2020-01-09] MEDS: PHARMACY COMMUNICATION MISC SCH ×3 (02:30→17:12)
[2020-01-09] MEDS: METOPROLOL TARTRATE 1 MG/ML 5ML VIAL IV SCH ×3 (03:30→14:13)
[2020-01-09] MEDS ORDERED: SODIUM CHLORIDE 0.9% 500ML 500 ML IV ONE (04:01)
[2020-01-09] MEDS ORDERED: DIPHENHYDRAMINE HCL 25 MG CAPSULE ONE (04:16)
[2020-01-09] MEDS: GUAIFENESIN-CODEINE 5 ML SYRUP PO SCH ×3 (05:15→16:19)
--- NOTE | 2020-01-09 06:50 | NUR ---
Blood transfusion Pt received 1st unit of blood, no adverse reaction noted, seconde unit started at 0605.
[2020-01-09 06:59] LABS: ABG BASE EXCESS -7.5 mmol/L (-2.0-3.0); ABG HCO3 21.1 mmol/L (21.0-28.0); ABG OXYGEN SATURATION 56.7 % (95.0-99.0); ABG PCO2 59 mmHg (35-48)
[2020-01-09 07:30] LABS: ABG BASE EXCESS -8.1 mmol/L (-2.0-3.0); ABG HCO3 19.5 mmol/L (21.0-28.0); ABG OXYGEN SATURATION 98.7 % (95.0-99.0); ABG PCO2 48 mmHg (35-48)
[2020-01-09] MEDS: INSULIN HUMULIN R 100 UNIT/ML 3ML SQ SCH ×3 (07:30→16:19)
[2020-01-09] MEDS: SUCRALFATE 1 GM TABLET PO SCH ×3 (07:30→16:19)
[2020-01-09] MEDS: Linaclotide (Linzess) 145 MCG PO SCH (09:00)
[2020-01-09] MEDS: POLYETHYLENE GLYCOL 3350 17 GM POWD.PACK PO SCH (09:00)
[2020-01-09] MEDS: ENOXAPARIN SODIUM 100 MG/1 ML SQ SCH (09:00)
[2020-01-09] MEDS: BENZONATATE 100 MG CAPSULE PO SCH ×2 (09:00→13:39)
[2020-01-09] MEDS: MEROPENEM 1 GM VIAL IVP SCH (09:55)
[2020-01-09] MEDS: METHYLPREDNISOLONE SOD SUCC 40MG/ML 1ML IVP SCH ×2 (09:55→14:00)
[2020-01-09] MEDS: ASPIRIN 81 MG EC TAB PO SCH (09:55)
[2020-01-09] MEDS: ASCORBIC ACID 500 MG TAB PO SCH (09:55)
[2020-01-09] MEDS: PANTOPRAZOLE SODIUM 40 MG TABLET.DR PO SCH (09:55)
[2020-01-09] MEDS: MIDODRINE HCL 5 MG TABLET PO SCH ×2 (09:56→15:45)
[2020-01-09 10:31] LABS: BASOPHILS % (AUTO) 0.3 % (0.0-5.0); EOSINOPHILS % (AUTO) 2.2 % (0.0-8.0); HEMATOCRIT 32.4 % (42-54); LYMPHOCYTES % (AUTO) 2.3 % (21.0-51.0); MEAN CORPUSCULAR HEMOGLOBIN 31.3 pg (27.0-33.0); MEAN CORPUSCULAR HGB CONC 33.6 g/dL (32.0-36.0); MEAN CORPUSCULAR VOLUME 93.1 fL (79-99); MONOCYTES % (AUTO) 1.6 % (3.0-13.0); NEUTROPHILS % (AUTO) 91.5 % (40.0-77.0); NUCLEATED RED BLOOD CELLS 0.7 % (0.0-0.19); PLATELET COUNT (AUTO) 67 K/uL (130-400); RED BLOOD CELL COUNT(AUTO) 3.48 MIL/uL (4.50-6.20); WHITE BLOOD COUNT (AUTO) 18.5 K/uL (4.8-10.8)
[2020-01-09] MEDS ORDERED: PANTOPRAZOLE 40 MG/VIAL IVP SCH (10:34)
--- NOTE | 2020-01-09 14:00 | NUR ---
family update this nurse zoomed pt w/family members.this nurse updated family on pts condition. explained to daughter critical condition pt is in. this nurse also educated family we will continue treating patient aggressively per family request.
--- NOTE | 2020-01-09 17:14 | NUR ---
blood pressure this nurse notified and dr. delgado throughout shift about unreadable blood pressures. no new orders obtained. cont w/current vasopressors and continue w/current treatment.will cont to monitor.
[2020-01-09] MEDS ORDERED: VANCOMYCIN 1GM+NS 250ML 250 ML IV SCH (18:00)
--- NOTE | 2020-01-09 18:52 | NUR ---
at 1825 pt noted not to have any palpable pulses. er doc notified and at bedside at 1830 to pronounce. daughter óscar notified at 1845.
== END 2020-01-09 18:30 | disposition expired | DRG 871 ==
LOC: EDH 11:41 → EDHIP 16:09 → 4BH 12-25 21:54 → 2DH 12-31 05:28 → 2BH 01-08 20:20
PROVIDERS: ADMIT Internal Medicine; ATTEND Internal Medicine
PROC: 30233N1 Transfusion of Nonautologous Red Blood Cells into Peripheral Vein, Percutaneous Approach (ICD-10-PCS; principal; 2019-12-22)
PROC: XW13325 Transfusion of Convalescent Plasma (Nonautologous) into Peripheral Vein, Percutaneous Approach, New Technology Group 5 (ICD-10-PCS; 2019-12-22)
PROC: XW033E5 Introduction of Remdesivir Anti-infective into Peripheral Vein, Percutaneous Approach, New Technology Group 5 (ICD-10-PCS; 2019-12-22)
PROC: 5A09557 Assistance with Respiratory Ventilation, Greater than 96 Consecutive Hours, Continuous Positive Airway Pressure (ICD-10-PCS; 2019-12-29)
PROC: 02HV33Z Insertion of Infusion Device into Superior Vena Cava, Percutaneous Approach (ICD-10-PCS; 2020-01-02)
PROC: 5A09457 Assistance with Respiratory Ventilation, 24-96 Consecutive Hours, Continuous Positive Airway Pressure (ICD-10-PCS; 2020-01-03)
PROC: 5A09357 Assistance with Respiratory Ventilation, Less than 24 Consecutive Hours, Continuous Positive Airway Pressure (ICD-10-PCS; 2020-01-06)
PROC: 5A09357 Assistance with Respiratory Ventilation, Less than 24 Consecutive Hours, Continuous Positive Airway Pressure (ICD-10-PCS; 2020-01-08)
PROC: 5A1935Z Respiratory Ventilation, Less than 24 Consecutive Hours (ICD-10-PCS; 2020-01-09)
PROC: 0BH17EZ Insertion of Endotracheal Airway into Trachea, Via Natural or Artificial Opening (ICD-10-PCS; 2020-01-09)
PROC: 5A12012 Performance of Cardiac Output, Single, Manual (ICD-10-PCS; 2020-01-09)
DX: A41.89 Other specified sepsis (principal); U07.1 COVID-19; J12.89 Other viral pneumonia; J96.01 Acute respiratory failure with hypoxia; I50.43 Acute on chronic combined systolic (congestive) and diastolic (congestive) heart failure; K72.00 Acute and subacute hepatic failure without coma; R65.21 Severe sepsis with septic shock; K92.0 Hematemesis; N17.9 Acute kidney failure, unspecified; A41.50 Gram-negative sepsis, unspecified; E87.6 Hypokalemia; E78.5 Hyperlipidemia, unspecified; D50.0 Iron deficiency anemia secondary to blood loss (chronic); R73.03 Prediabetes; Z66 Do not resuscitate; I11.0 Hypertensive heart disease with heart failure; I25.10 Atherosclerotic heart disease of native coronary artery without angina pectoris; Z95.1 Presence of aortocoronary bypass graft; I25.2 Old myocardial infarction; Z88.0 Allergy status to penicillin; Z88.8 Allergy status to other drugs, medicaments and biological substances; Z82.49 Family history of ischemic heart disease and other diseases of the circulatory system; Z83.3 Family history of diabetes mellitus; Z82.0 Family history of epilepsy and other diseases of the nervous system; Z82.5 Family history of asthma and other chronic lower respiratory diseases; Z82.3 Family history of stroke; Z80.42 Family history of malignant neoplasm of prostate; B96.20 Unspecified Escherichia coli [E. coli] as the cause of diseases classified elsewhere
CPT/HCPCS: 31500; 36415; 36430; 36600; 71045; 71275; 76770; 80048; 80053; 81001; 82435; 82550; 82728; 82803; 82947; 82948; 83036; 83605; 83615; 83735; 83874; 83880; 84100; 84132; 84145; 84295; 84484; 85018; 85025; 85378; 85610; 85730; 86140; 86850; 86900; 86901; 86922; 86927; 87040; 87077; 87088; 87186; 87804; 92950; 93005; 94002; 94003; 94660; A4330; C1894; C9113; G0378; J0456; J0610; J1650; J1815; J1885; J1940; J2185; J2250; J2370; J2405; J2920; J3010; J3370; J3490; J7030; J7040; J7050; J7070; P9016; Q0163; Q9967; U0003